=== PATIENT | female | born 1960 | race Caucasian/White ===

== ENCOUNTER 2016-03-28 06:35 | Day surgery (SDC) | payer BC, OTHER ==
[2016-03-20 13:44] VITALS: BMI 22.1
[~2016-03-28 06:35] MED LIST: DEXAMETHASONE SOD PHOSPHATE 10 MG/ML 1 ML VIAL IV ONE; HEPARIN SODIUM,PORCINE 5,000 UNIT/ML 1 ML VIAL SQ ONE; LACTATED RINGERS 1,000 ML IV SCH; MIDAZOLAM 2 MG/2 ML VIAL IV PRN; ONDANSETRON 4 MG/2 ML VIAL IVP ONE; SCOPOLAMINE 1.5MG/72HR PATCH TRANSDERM ONE; ceFAZolin 2 GM in SODIUM CHLORIDE 0.9% 100 ML IVPB ONE
[2016-03-28 06:57] VITALS: RESP 16
[2016-03-28] MEDS ORDERED: LIDOCAINE 1% 20 ML VIAL (10MG/ML) FOR IV START INTRADERMA ONE (06:58)
[2016-03-28] MEDS ORDERED: BUPIVACAIN-EPI 0.25%-1:200,000 30 ML VIAL SQ ONE ×2 (07:32→08:26)
[2016-03-28] MEDS ORDERED: GLYCOPYRROLATE 0.2 MG/ML 2 ML VIAL ONE (07:33)
[2016-03-28] MEDS ORDERED: PROPOFOL 10 MG/ML 20 ML VIAL IV ONE (07:33)
[2016-03-28] MEDS ORDERED: ceFAZolin 1,000 MG VIAL ONE (07:33)
[2016-03-28] MEDS ORDERED: SUCCINYLCHOLINE CHLORIDE VIAL 200 MG/10 ML VIAL IV ONE (07:33)
[2016-03-28] MEDS ORDERED: MIDAZOLAM 2 MG/2 ML VIAL ONE (07:33)
[2016-03-28] MEDS ORDERED: ROCURONIUM BROMIDE 10 MG/ML 10 ML VIAL IV ONE (07:33)
[2016-03-28] MEDS ORDERED: LACTATED RINGERS 1,000 ML BAG IV ONE (07:33)
[2016-03-28] MEDS ORDERED: fentaNYL (PF) 50 MCG/ML 2 ML AMP ONE (07:33)
[2016-03-28] MEDS ORDERED: PHENYLEPHRINE-0.9% NACL SYG 1 MG/10 ML SYRINGE ONE (07:33)
[2016-03-28] MEDS ORDERED: NEOSTIGMINE 1 MG/ML 10 ML VIAL ONE (07:33)
[2016-03-28] MEDS ORDERED: SODIUM CHLORIDE 0.9% 100 ML BAG ONE (07:33)
[2016-03-28] MEDS ORDERED: LACTATED RINGERS 1,000 ML IV ONE (08:25)
--- NOTE | 2016-03-28 08:30 | P.OP ---
Date of Procedure: 03/28/16 Preoperative Diagnosis: Right upper quadrant pain, gallbladder polyp Postoperative Diagnosis: Same Procedure(s) Performed: Laparoscopic cholecystectomy Implants: NA Anesthesia: MARTA, local Surgeon: Georgette Barnes Estimated Blood Loss (ml): 5 IV fluids (ml): 1,200 Pathology: other Condition: other (ASA 2) Disposition: PACU Indications for Procedure: 55 years old female presents with right upper quadrant pain. Ultrasound shows polyp in the gallbladder. Informed consent obtained and patient elected to undergo laparoscopic cholecystectomy possible open. Risks, benefits and potential complications including bleeding, infection, inadvertent bile duct injury were explained. Operative Findings: Acute on chronic cholecystitis Description of Procedure: The patient was brought to the operating room and placed in supine position with both arms out. General anesthesia with endotracheal intubation was performed as per anesthesia team. Chlorhexidine was used to prep the abdomen followed by application of sterile drapes. A timeout was performed to verify correct patient and correct procedure. Patient was confirmed to receive perioperative IV antibiotics , heparin 5000 units subcutaneous injection and bilateral SCDs were placed. A 5 mm skin incision was made below the left costal margin at the anterior axillary line. A Veress needle was inserted and pneumoperitoneum was established to a pressure of 15 mmHg. A 5 mm Optiview trocar was loaded on a 5 mm 30 laparoscope and the peritoneal cavity was entered under direct vision using the Optiview technique. Additional 5 mm trocar was placed in the supraumbilical location and two 5 mm trocars along the right subcostal margin. The left 5 mm trocar was upsized to 10mm. The patient was placed in reverse Trendelenburg with right side up. The fundus of the gallbladder was grasped with an atraumatic grasper and was retracted over the dome of the liver. There was some omental adhesions to the gallbladder which were taken down using L hook.The infundibulum was grasped with an atraumatic grasper and retracted towards the pelvis to expose the Calot' s triangle. Lateral and medial peritoneal attachment of the gallbladder bladder was dissected. Circumferential dissection was carried out around the cystic artery and the cystic duct to obtain adequate length for clip application. All the surrounding fibrofatty tissue were removed. Critical view was obtained with cystic duct and cystic artery as the only two structures entering the gallbladder. Two clips were applied on the patient's side and one on the specimen side on the cystic duct first followed by the cystic artery. Endoshears were used to divide the cystic duct and the cystic artery. The gallbladder was taken off the liver bed using a L-hook. It was placed in an endocatch specimen bag and removed through the 10mm port. The gallbladder was passed off as a specimen. The abdominal cavity was inspected. The clips on the cystic duct and cystic artery stump were intact and no bleeding noted from the liver bed. All the trocar sites were examined and no evidence of bleeding. The 10mm port site was closed with two transfascial sutures of 0 Vicryl using a Caden Lilina device. The pneumoperitoneum was evacuated and all the trocars were removed. Local anesthetic was infiltrated along the trocar sites and incisions were closed using 4-0 Monocryl followed by application of Dermabond skin glue. The sponge, instrument and needle count were correct x2. Patient was extubated and taken to post anesthesia care unit in stable condition.
[2016-03-28 08:44] VITALS: TEMP 98
[2016-03-28] MEDS ORDERED: KETOROLAC 30 MG/ML 1 ML VIAL IVP ONE (08:52)
[2016-03-28] MEDS ORDERED: ONDANSETRON 4 MG/2 ML VIAL IVP ONE (08:57)
[2016-03-28] MEDS: HYDROmorphone 1 MG/ML 1 ML SYRINGE IVP PRN ×2 (08:57→09:04)
[2016-03-28] MEDS ORDERED: HYDROcodone/APAP 5-325MG 1 EACH TAB PO ONE (09:36)
[2016-03-28 10:28] VITALS: BP 92/61; PULSE 56
== END 2016-03-28 10:46 | disposition home or self-care (01) ==
LOC: OR 06:35
PROVIDERS: ATTEND Surgery
DX: K81.1 Chronic cholecystitis (principal); L92.8 Other granulomatous disorders of the skin and subcutaneous tissue; K66.0 Peritoneal adhesions (postprocedural) (postinfection); K21.9 Gastro-esophageal reflux disease without esophagitis; Z79.899 Other long term (current) drug therapy
CPT/HCPCS: 47562; 88304; J2250; J0330; J1644; J1100; J2710; J2405; J0690; J3010; J1885; J1170; J2370; J2704

== ENCOUNTER → 2019-12-12 | Outpatient (CLI) | payer BC, OTHER | END | disposition home or self-care (01) | LOC: LABWHC1 14:26 | PROVIDERS: ATTEND Internal Medicine | DX: Z03.818 Encounter for observation for suspected exposure to other biological agents ruled out (principal) | CPT/HCPCS: U0003; C9803 ==

== ENCOUNTER 2019-12-16 15:02 | Inpatient (IN) | payer OTHER ==
[2019-12-16] MEDS ORDERED: ACETAMINOPHEN TAB 500 MG TAB PO STA (15:23)
[2019-12-16] MEDS ORDERED: SODIUM CHLORIDE 0.9% 500 ML 500 ML IV STA (15:23)
--- NOTE | 2019-12-16 15:35 | ED ---
General Adult HPI - General Chief complaint: Fever Stated complaint: Fever, Cough Time Seen by Provider: 12/16/19 15:13 Source: patient, RN notes reviewed, old records reviewed Mode of arrival: ambulatory Limitations: no limitations - History of Present Illness Initial comments: 79-year-old female presenting for evaluation of fever. She states she has had on and off fever for the past several weeks. She was tested for rotavirus on Thursday of this week. She was told these results were negative. She's had cough which is productive at times, nasal congestion, bilateral ear pain, sore throat. She's also had nausea and some abdominal pain. She dysuria or urinary frequency. She has not had vomiting. She does report dyspnea associated with her cough. - Related Data Home Medications Medication Instructions Recorded Confirmed Omeprazole 20 mg PO DAILY 03/20/16 12/16/19 Acetaminophen Tab [Tylenol Tab] 1,000 mg PO Q4-6H PRN 12/16/19 12/16/19 Fluticasone Propionate [Flonase 2 spray EA NOSTRIL BID 12/16/19 12/16/19 Allergy Relief] Loratadine [Claritin] 10 mg PO DAILY 12/16/19 12/16/19 Allergies Allergy/AdvReac Type Severity Reaction Status Date / Time No Known Allergies Allergy Verified 12/16/19 16:36 Review of Systems ROS Statement: Those systems with pertinent positive or pertinent negative responses have been documented in the HPI. ROS Other: All systems not noted in ROS Statement are negative. Past Medical History Past Medical History: GERD/Reflux Additional Past Medical History / Comment(s): OVERACTIVE BLADDER, SEASONAL ALLERGIES History of Any Multi-Drug Resistant Organisms: None Reported Additional Past Surgical History / Comment(s): COLONOSCOPY Past Anesthesia/Blood Transfusion Reactions: No Reported Reaction Past Psychological History: No Psychological Hx Reported Smoking Status: Never smoker Past Alcohol Use History: Occasional Past Drug Use History: None Reported - Past Family History Mother Family Medical History: Cancer Additional Family Medical History / Comment(s): COLON Father Family Medical History: Deep Vein Thrombosis (DVT) General Exam Limitations: no limitations General appearance: alert, in no apparent distress Head exam: Present: atraumatic, normocephalic Eye exam: Present: normal appearance, PERRL, other. Absent: scleral icterus, periorbital swelling, periorbital tenderness ENT exam: Present: other (Patient has pharyngeal erythema, white exudate). A bsent: TM's normal bilaterally (Left otitis medial with effusion, severe right otitis media with purulent effusion.) Neck exam: Present: normal inspection. Absent: tenderness, meningismus Respiratory exam: Present: respiratory distress (mild), decreased breath sounds Cardiovascular Exam: Present: normal rhythm, tachycardia GI/Abdominal exam: Present: soft. Absent: distended, tenderness, guarding Extremities exam: Present: normal inspection, normal capillary refill. Absent: pedal edema Neurological exam: Present: alert, oriented X3, CN II-XII intact. Absent: motor sensory deficit Psychiatric exam: Present: normal affect, normal mood Skin exam: Present: warm, dry, intact. Absent: cyanosis, diaphoretic Course Vital Signs 12/16/19 12/16/19 12/16/19 15:05 16:14 17:15 Temperature 105.5 F H 101.2 F H Pulse Rate 120 H 109 H 100 Respiratory 20 24 18 Rate Blood Pressure 118/70 143/77 120/70 O2 Sat by Pulse 94 L 93 L 93 L Oximetry Medical Decision Making - Medical Decision Making 59 yo female with fever, ear pain cough, congestion and sore throat. Workup was initiated coronavirus although she had a negative test on Thursday of this week. She has a exudative pharyngitis. She has a severe right otitis media. Chest x-ray shows a left lower lobe pneumonia with parapneumonic effusion. Patient has mild leukocytosis, 10.8. Otherwise laboratory testing including electrolytes. She has a heterophile positive suggestive of mononucleosis. She remains mildly hypoxic on room air with a 93%. She has high-grade fevers and tachycardia. She's given IV hydration, started on IV antibiotics. I suspect that many of her symptoms may be related to mono however given the pneumonia with effusion she will be admitted for IV antibiotics. Pulmonology will be placed on consult. Case is discussed with Nina baez for [facility] hospitalists. - Lab Data Result diagrams: 12/16/19 15:50 12/16/19 15:50 Lab Results 12/16/19 12/16/19 12/16/19 Range/Units 15:50 15:50 15:50 WBC 10.8 H (3.8-10.6) k/uL RBC 4.05 (3.80-5.40) m/uL Hgb 12.0 (11.4-16.0) gm/dL Hct 37.0 (34.0-46.0) % MCV 91.2 (80.0-100.0) fL MCH 29.5 (25.0-35.0) pg MCHC 32.4 (31.0-37.0) g/dL RDW 11.8 (11.5-15.5) % Plt Count 404 (150-450) k/uL Neutrophils % 87 % Lymphocytes % 6 % Monocytes % 5 % Eosinophils % 1 % Basophils % 1 % Neutrophils # 9.4 H (1.3-7.7) k/uL Lymphocytes # 0.6 L (1.0-4.8) k/uL Monocytes # 0.5 (0-1.0) k/uL Eosinophils # 0.1 (0-0.7) k/uL Basophils # 0.1 (0-0.2) k/uL Sodium 135 L (137-145) mmol/L Potassium 4.5 (3.5-5.1) mmol/L Chloride 98 (98-107) mmol/L Carbon Dioxide 26 (22-30) mmol/L Anion Gap 11 mmol/L BUN 13 (7-17) mg/dL Creatinine 0.70 (0.52-1.04) mg/dL Est GFR (CKD-EPI)AfAm >90 (>60 ml/min/1.73 sqM) Est GFR (CKD-EPI)NonAf >90 (>60 ml/min/1.73 sqM) Glucose 121 H (74-99) mg/dL Plasma Lactic Acid Deondre (0.7-2.0) mmol/L Calcium 9.1 (8.4-10.2) mg/dL Total Bilirubin 0.5 (0.2-1.3) mg/dL AST 25 (14-36) U/L ALT 14 (4-34) U/L Alkaline Phosphatase 87 (38-126) U/L Total Protein 7.1 (6.3-8.2) g/dL Albumin 4.0 (3.5-5.0) g/dL Heterophile Antibody Positive (Negative) Influenza Type A RNA (Not Detectd) Influenza Type B (PCR) (Not Detectd) Group A Strep Rapid (Negative) 12/16/19 12/16/19 12/16/19 Range/Units 15:50 16:12 16:12 WBC (3.8-10.6) k/uL RBC (3.80-5.40) m/uL Hgb (11.4-16.0) gm/dL Hct (34.0-46.0) % MCV (80.0-100.0) fL MCH (25.0-35.0) pg MCHC (31.0-37.0) g/dL RDW (11.5-15.5) % Plt Count (150-450) k/uL Neutrophils % % Lymphocytes % % Monocytes % % Eosinophils % % Basophils % % Neutrophils # (1.3-7.7) k/uL Lymphocytes # (1.0-4.8) k/uL Monocytes # (0-1.0) k/uL Eosinophils # (0-0.7) k/uL Basophils # (0-0.2) k/uL Sodium (137-145) mmol/L Potassium (3.5-5.1) mmol/L Chloride (98-107) mmol/L Carbon Dioxide (22-30) mmol/L Anion Gap mmol/L BUN (7-17) mg/dL Creatinine (0.52-1.04) mg/dL Est GFR (CKD-EPI)AfAm (>60 ml/min/1.73 sqM) Est GFR (CKD-EPI)NonAf (>60 ml/min/1.73 sqM) Glucose (74-99) mg/dL Plasma Lactic Acid Deondre 1.6 (0.7-2.0) mmol/L Calcium (8.4-10.2) mg/dL Total Bilirubin (0.2-1.3) mg/dL AST (14-36) U/L ALT (4-34) U/L Alkaline Phosphatase (38-126) U/L Total Protein (6.3-8.2) g/dL Albumin (3.5-5.0) g/dL Heterophile Antibody (Negative) Influenza Type A RNA Not Detected (Not Detectd) Influenza Type B (PCR) Not Detected (Not Detectd) Group A Strep Rapid Negative (Negative) Disposition Clinical Impression: Community acquired pneumonia, Mononucleosis, Otitis media Disposition: ADMITTED IP TO THIS HOSP Condition: Stable Is patient prescribed a controlled substance at d/c from ED?: No Referrals: Chacha Singleton MD [Primary Care Provider] - 1-2 days Decision to Admit Reason: Admit from EC Decision Date: 12/16/19 Decision Time: 17:19
[2019-12-16 15:59] LABS: Basophils # (A) 0.1 k/uL (0-0.2); Basophils % (A) 1 %; Eosinophils # (A) 0.1 k/uL (0-0.7); Eosinophils % (A) 1 %; Lymphocytes # (A) 0.6 k/uL (1.0-4.8); Lymphocytes % (A) 6 %; MCH 29.5 pg (25.0-35.0); MCHC 32.4 g/dL (31.0-37.0); MCV 91.2 fL (80.0-100.0); Mean Platelet Volume 6.6; Monocytes # (A) 0.5 k/uL (0-1.0); Monocytes % (A) 5 %; Neutrophils # (A) 9.4 k/uL (1.3-7.7); Neutrophils % (A) 87 %; Platelet Count 404 k/uL (150-450); RBC 4.05 m/uL (3.80-5.40); RDW 11.8 % (11.5-15.5); WBC 10.8 k/uL (3.8-10.6)
[2019-12-16 16:11] LABS: ALT 14 U/L (4-34); AST 25 U/L (14-36); African American GFR (CKD) >90 (>60 ml/min/1.73 sqM); Alkaline Phosphatase 87 U/L (38-126); Anion Gap 11 mmol/L; Blood Urea Nitrogen 13 mg/dL (7-17); Calcium 9.1 mg/dL (8.4-10.2); Carbon Dioxide 26 mmol/L (22-30); Chloride 98 mmol/L (98-107); Glucose 121 mg/dL (74-99); Non-African American GFR(CKD) >90 (>60 ml/min/1.73 sqM); Potassium 4.5 mmol/L (3.5-5.1); Sodium 135 mmol/L (137-145); Total Bilirubin 0.5 mg/dL (0.2-1.3); Total Protein 7.1 g/dL (6.3-8.2)
[2019-12-16] MEDS ORDERED: AMOXIC-POT CLAV 875MG STARTER PACK 2 TAB BTL PO STA (16:39)
--- NOTE | 2019-12-16 16:40 | XR ---
EXAMINATION TYPE: XR chest 1V portable DATE OF EXAM: 12/16/2019 CLINICAL HISTORY: Fever, cough TECHNIQUE: Frontal portable view of the chest obtained COMPARISON: None FINDINGS: The cardiomediastinal silhouette is within normal limits for size. Pulmonary vasculature i s normal. There is small left pleural effusion and left basilar airspace opacity. No pneumothorax. Th e osseous structures are intact. IMPRESSION: Small left pleural effusion and left basilar airspace opacity.
[2019-12-16] MEDS ORDERED: AZITHROMYCIN 500 MG in SODIUM CHLORIDE 0.9% 250 ML IVPB STA (17:08)
[2019-12-16] MEDS ORDERED: cefTRIAXone IN SWFI 1,000 MG/10 ML SYRINGE IVP STA (17:08)
[2019-12-16] MEDS ORDERED: NALOXONE 0.4 MG/ML 1 ML VIAL IV PRN (17:15)
[2019-12-16] MEDS ORDERED: ACETAMINOPHEN TAB 325 MG TAB PO PRN (17:15)
[2019-12-16] MEDS ORDERED: SODIUM CHLORIDE 0.9% 500 ML 500 ML IV ONE (17:18)
[2019-12-16] MEDS: IBUPROFEN 400 MG TAB PO PRN (17:44)
[2019-12-16] MEDS: SODIUM CHLORIDE 0.9% 1,000 ML IV SCH (17:45)
[2019-12-16 22:13] LABS: Appearance,Urine Clear (Clear); Bilirubin,Urine Negative (Negative); Blood,Urine Negative (Negative); Color,Urine Light Yellow; Glucose,Urine (UA) Negative (Negative); Ketones,Urine Trace (Negative); Leukocyte Esterase,Urine Negative (Negative); Nitrite,Urine Negative (Negative); PH, Urine 5.5 (5.0-8.0); Protein,Urine Negative (Negative); Specific Gravity,Urine 1.008 (1.001-1.035); Urobilinogen,Urine <2.0 mg/dL (<2.0)
[2019-12-17] MEDS: BENZOCAINE/MENTHOL LOZENG 1 EACH LOZENGE MUCOUS MEM PRN ×5 (01:21→21:36)
[2019-12-17] MEDS: guaiFENesin-DM 100-10MG/5ML 10 ML CUP PO PRN ×2 (01:23→23:54)
[2019-12-17] MEDS: SODIUM CHLORIDE 0.9% 1,000 ML IV SCH ×3 (05:42→12:50)
[2019-12-17] MEDS: LORATADINE 10 MG TAB PO SCH (08:11)
[2019-12-17] MEDS: PANTOPRAZOLE 40 MG TABLET PO SCH (08:11)
[2019-12-17] MEDS: FLUTICASONE 50MCG/SPRAY NASAL 16GM EA NOSTRIL SCH ×2 (08:21→21:38)
--- NOTE | 2019-12-17 11:49 | P.CNPUL ---
History of Present Illness Consult date: 12/17/19 Requesting physician: Maico Vargas Reason for consult: dyspnea, abnormal CXR/CT (Left lower lobe infiltrate) Chief complaint: Shortness of breath, cough, sore throat History of present illness: This is a 59-year-old female patient who follows with Dr. Singleton as her primary care provider. She has a history of alcohol use, gastroesophageal reflux disease, seasonal ALLERGIES. She's been having a 2 week history of sore throat and right ear pain cough with yellow productive sputum and fever. She had CoVID 19 test earlier this week that was reported as negative. She presented here yesterday to the emergency room with ongoing fever. She presented with a T-max of 105.5. Chest x-ray revealed a limited left lower lobe infiltrate/effusion. She is seen today in consultation on the regular medical floor. She is awake and alert in no acute distress. She is maintaining O2 saturations in the mid 90s on 2 L/m per nasal cannula. Currently afebrile. Hemodynamically stable. Throat culture pending. Heterophile antibody positive. White count 10.8. Hemoglobin 12.0. Sodium 135. Potassium 4.5. Creatinine 0.70. Influenza screen negative. Rapid strep negative. She's been initiated on ceftriaxone and azithromycin. 0.9 normal saline at 130 ML's per hour. Review of Systems REVIEW OF SYSTEMS: CONSTITUTIONAL: Denies any recent significant weight loss or weight gain. EYES: Denies change in vision. EARS, NOSE, MOUTH, THROAT: Positive for sore throat, right ear pain. CARDIOVASCULAR: Denies chest pain, palpitations or syncopal episodes. RESPIRATORY: Positive for shortness of breath, cough, congestion no hemoptysis. GASTROINTESTINAL: Denies change in appetite, denies abdominal pain GENITOURINARY: Denies hematuria, denies infections. MUSKULOSKELETAL: Denies pain, denies swelling. INTEGUMENTARY: Denies rash, denies eczema. NEUROLOGICAL: Denies recent memory loss, no recent seizure activity. PSYCHIATRIC: Denies anxiety, denies depression. HEMATOLOGIC/LYMPHATIC: Denies anemia, denies enlarged lymph nodes. Past Medical History Past Medical History: GERD/Reflux Additional Past Medical History / Comment(s): OVERACTIVE BLADDER, SEASONAL ALLERGIES History of Any Multi-Drug Resistant Organisms: None Reported Past Surgical History: Cholecystectomy Additional Past Surgical History / Comment(s): COLONOSCOPY Past Anesthesia/Blood Transfusion Reactions: No Reported Reaction Past Psychological History: No Psychological Hx Reported Smoking Status: Never smoker Past Alcohol Use History: Occasional Past Drug Use History: None Reported - Past Family History Mother Family Medical History: Cancer Additional Family Medical History / Comment(s): COLON Father Family Medical History: Deep Vein Thrombosis (DVT) Medications and Allergies Home Medications Medication Instructions Recorded Confirmed Type Omeprazole 20 mg PO DAILY 03/20/16 12/16/19 History Acetaminophen Tab [Tylenol Tab] 1,000 mg PO Q4-6H PRN 12/16/19 12/16/19 History Fluticasone Propionate [Flonase 2 spray EA NOSTRIL BID 12/16/19 12/16/19 History Allergy Relief] Loratadine [Claritin] 10 mg PO DAILY 12/16/19 12/16/19 History Allergies Allergy/AdvReac Type Severity Reaction Status Date / Time No Known Allergies Allergy Verified 12/16/19 16:36 Physical Exam Vitals: Vital Signs Temp Pulse Pulse Resp BP BP Pulse Ox 12/17/19 07:00 98.2 F 91 16 136/81 95 12/16/19 19:29 99.7 F H 82 103/56 95 12/16/19 18:49 87 16 101/79 93 L 12/16/19 17:15 101.2 F H 100 18 120/70 93 L 12/16/19 16:14 109 H 24 143/77 93 L 12/16/19 15:05 105.5 F H 120 H 20 118/70 94 L Intake and Output 12/16/19 12/17/19 12/17/19 22:59 06:59 14:59 Intake Total 200 Balance 200 Intake: Oral 200 Other: Voiding Method Toilet Toilet # Voids 1 Weight 49.895 kg GENERAL EXAM: Alert, active, 59-year-old female patient, on 2 L/m per nasal cannula, comfortable in no apparent distress. HEAD: Normocephalic. EYES: Normal reaction of pupils, equal size. NOSE: Clear with pink turbinates. THROAT: Erythema no exudates. NECK: No masses, no JVD. CHEST: No chest wall deformity. LUNGS: Equal air entry with crackles in the left base. CVS: S1 and S2 normal with no audible murmur, regular rhythm. ABDOMEN: No hepatosplenomegaly, normal bowel sounds, no guarding or rigidity. SPINE: No scoliosis or deformity SKIN: No rashes CENTRAL NERVOUS SYSTEM: No focal deficits, tone is normal in all 4 extremities. EXTREMITIES: There is no peripheral edema. No clubbing, no cyanosis. Per ipheral pulses are intact. Results - Laboratory Findings CBC and BMP: 12/16/19 15:50 12/16/19 15:50 Abnormal lab findings: Abnormal Labs 12/16/19 12/16/19 12/16/19 15:50 15:50 22:00 WBC 10.8 H Neutrophils # 9.4 H Lymphocytes # 0.6 L Sodium 135 L Glucose 121 H Urine Ketones Trace H - Diagnostic Findings Chest x-ray: image reviewed Assessment and Plan Assessment: 1 Febrile illness secondary to left lower lobe pneumonia, community-acquired. Influenza screen negative. CoVID screen negative reported as negative by outside source 2 Dyspnea secondary to acute left lower lobe pneumonia 3 History of seasonal ALLERGIES. 4 History of gastroesophageal reflux disease 5 History of alcohol use Plan: The patient was seen and evaluated by Dr. Gabriel Chest x-ray and labs reviewed Continue ceftriaxone and azithromycin Cepacol for sore throat Repeat chest x-ray on Thursday Probable discharge in the next 48 hours We'll continue to follow I, the cosigning physician, performed a history & physical examination of the patient. Lungs sounds crackles in the left posterior. Maintaining good O2 saturations in the 90s on 2 L/m per nasal cannula. I discussed the assessment and plan of care with my nurse practitioner, Ayanna Barrera. I attest to the above note as dictated by her. Time with Patient: Greater than 30
[2019-12-17] MEDS: IBUPROFEN 400 MG TAB PO PRN (14:05)
[2019-12-17] MEDS: AZITHROMYCIN 500 MG in SODIUM CHLORIDE 0.9% 250 ML IVPB SCH (14:05)
[2019-12-17] MEDS ORDERED: ALPRAZolam 0.25 MG TAB PO PRN (14:37)
[2019-12-17] MEDS ORDERED: HYDROcodone/APAP 5-325MG 1 EACH TAB PO PRN (14:37)
[2019-12-17 14:44] VITALS: BMI 19.5
--- NOTE | 2019-12-17 16:27 | HP ---
HISTORY AND PHYSICAL DATE OF SERVICE: 12/17/2019 CHIEF COMPLAINT: Shortness of breath, cough and sore throat. HISTORY OF PRESENT ILLNESS: This 59-year-old woman with a past medical history of GERD, history of overactive bladder, history of colonoscopy, being followed by Dr. Singleton in the outpatient setting, not feeling well over the past several weeks. The patient initially had a sore throat. Subsequently, patient had a cough and weakness and sputum. The patient came to [facility] and was admitted for further evaluation and treatment. The patient was tested for coronavirus outside which was negative. In the ER, the patient had possibly left lower lobe pneumonia with some minimal effusion indicating community- acquired pneumonia. The patient admitted for further evaluation and treatment. There is no history of any headache, loss of consciousness or seizures. No hematochezia, melena at this time. PAST MEDICAL HISTORY: GERD, overactive bladder. History of cholecystectomy, colonoscopy. MEDICATIONS: At home prior to admission include: omeprazole, Claritin. Flonase. Tylenol. Doses reviewed. ALLERGIES: None. FAMILY HISTORY: Family history of colon cancer in the family. SOCIAL HISTORY: No history of smoking. Occasional alcohol intake. REVIEW OF SYSTEMS: ENT as mentioned earlier. CARDIOVASCULAR: No angina or palpitations. RESPIRATORY: As mentioned earlier. GI: No nausea or vomiting. no dysuria. NERVOUS SYSTEM: No numbness or weakness. ALLERGY/IMMUNOLOGY: No asthma or hayfever. MUSCULOSKELETAL as mentioned earlier. HEMATOLOGY/ONCOLOGY: No history of anemia. ENDOCRINE: No history of diabetes or hypothyroidism. CONSTITUTIONAL: As mentioned earlier. DERMATOLOGY: Negative. RHEUMATOLOGY negative. PSYCHIATRY as mentioned earlier. PHYSICAL EXAMINATION: The patient is alert and oriented times three. Pulse 91, blood pressure 136/81, respirations 16, temp 98.2, pulse ox 94% on 2 L nasal cannula. HEENT: Conjunctivae normal. NECK: No JVD. CARDIOVASCULAR: S1, S2 muffled. RESPIRATORY: Breath sounds diminished in the bases. A few scattered rhonchi and crackles. ABDOMEN: Soft, nontender. No mass palpable. LEGS no edema. No swelling. NERVOUS SYSTEM: Higher functions as mentioned earlier. Moves all 4 limbs. No focal motor or sensory deficits. LYMPHATICS: No lymph nodes palpable in the neck, axillae or groin. SKIN: No ulcers. No rashes or bleeding. JOINTS: No active deforming arthropathy. LABS: At this time shows: WBC 10.8, hemoglobin is 12, sodium 135. ASSESSMENT: 1. Acute left lower pneumonia with community-acquired pneumonia with possible left pleural effusion. 2. Infectious mononucleosis with sore throat. 3. Shortness of breath, possibly reactive bronchospasm. 4. Increased WBC. 5. Hyponatremia. 6. Increased random blood sugar. 7. History of gastroesophageal reflux disease. 8. History of overactive bladder. 9. History of seasonal allergies. 10.History of cholecystectomy. 11.Mild protein calorie malnutrition with body mass index of 19.5. 12.FULL CODE. RECOMMENDATIONS AND DISCUSSION: This 59-year-old woman who presented with multiple complex medical issues, we will monitor the patient closely. Continue the current medications, management and symptomatic treatment. We will initiate bronchodilators and as well as antibiotics. I would also add a small dose of steroids because history of seasonal allergies as well. Otherwise continue to monitor. Symptomatic treatment also will be provided. Overall prognosis guarded because of multiple complex medical issues. We will continue to monitor. Home medication will be reconciled. A copy of this dictation being forwarded to Dr. Singleton who is the primary physician. MMODL / IJN: [id number] / PREETI
[2019-12-17] MEDS: methylPREDNISolone SOD SUCCI 125 MG/2 ML VIAL IV SCH ×3 (16:30→23:54)
[2019-12-17] MEDS: INSULIN ASPART (NovoLOG) 100 UNIT/ML VIAL SQ SCH ×2 (16:53→21:37)
[2019-12-17 17:10] LABS: Glucose,Whole Blood 98 mg/dL (75-99)
[2019-12-17 20:32] LABS: Glucose,Whole Blood 168 mg/dL (75-99)
[2019-12-17] MEDS: HEPARIN SODIUM,PORCINE 5,000 UNIT/ML 1 ML VIAL SQ SCH (21:37)
[2019-12-18] MEDS: BENZOCAINE/MENTHOL LOZENG 1 EACH LOZENGE MUCOUS MEM PRN ×2 (01:43→12:22)
[2019-12-18] MEDS: methylPREDNISolone SOD SUCCI 125 MG/2 ML VIAL IV SCH ×4 (05:25→23:08)
[2019-12-18 06:52] LABS: Glucose,Whole Blood 165 mg/dL (75-99)
[2019-12-18] MEDS: LORATADINE 10 MG TAB PO SCH (07:43)
[2019-12-18] MEDS: INSULIN ASPART (NovoLOG) 100 UNIT/ML VIAL SQ SCH ×4 (07:43→21:06)
[2019-12-18] MEDS: FLUTICASONE 50MCG/SPRAY NASAL 16GM EA NOSTRIL SCH ×2 (07:43→21:06)
[2019-12-18] MEDS: PANTOPRAZOLE 40 MG TABLET PO SCH (07:43)
[2019-12-18 07:44] LABS: Basophils % (A) 0 %; Eosinophils % (A) 0 %; HCT 35.8 % (34.0-46.0); HGB 11.5 gm/dL (11.4-16.0); Lymphocytes # (A) 0.6 k/uL (1.0-4.8); Lymphocytes % (A) 5 %; MCH 29.9 pg (25.0-35.0); MCV 93.3 fL (80.0-100.0); Mean Platelet Volume 6.7; Monocytes # (A) 0.2 k/uL (0-1.0); Monocytes % (A) 2 %; Neutrophils % (A) 93 %; Platelet Count 488 k/uL (150-450); RBC 3.84 m/uL (3.80-5.40); RDW 12.4 % (11.5-15.5); WBC 10.8 k/uL (3.8-10.6)
[2019-12-18] MEDS: HEPARIN SODIUM,PORCINE 5,000 UNIT/ML 1 ML VIAL SQ SCH ×2 (07:44→21:05)
[2019-12-18 08:06] LABS: African American GFR (CKD) >90 (>60 ml/min/1.73 sqM); Anion Gap 10 mmol/L; Blood Urea Nitrogen 7 mg/dL (7-17); Calcium 8.7 mg/dL (8.4-10.2); Carbon Dioxide 26 mmol/L (22-30); Chloride 103 mmol/L (98-107); Glucose 201 mg/dL (74-99); Non-African American GFR(CKD) >90 (>60 ml/min/1.73 sqM); Potassium 3.5 mmol/L (3.5-5.1); Sodium 139 mmol/L (137-145)
[2019-12-18 11:44] LABS: Glucose,Whole Blood 173 mg/dL (75-99)
--- NOTE | 2019-12-18 11:55 | XR ---
EXAMINATION TYPE: XR chest 1V portable DATE OF EXAM: 12/18/2019 COMPARISON: 12/16/2019 INDICATION: Left-sided pneumonia TECHNIQUE: Single frontal view of the chest is obtained. FINDINGS: The heart size is normal. The pulmonary vasculature is normal. Left lower lobe infiltrate is present. Calcification is present could be a granuloma. Remaining porti ons of the lungs are clear. IMPRESSION: 1. Findings suggestive for improving left lower lobe pneumonia. Follow-up to clearing is recommended.
--- NOTE | 2019-12-18 13:10 | P.PN ---
Subjective Progress Note Date: 12/18/19 Principal diagnosis: Community-acquired left lower lobe pneumonia This is a 59-year-old female patient who follows with Dr. Singleton as her primary care provider. She has a history of alcohol use, gastroesophageal reflux disease, seasonal ALLERGIES. She's been having a 2 week history of sore throat and right ear pain cough with yellow productive sputum and fever. She had CoVID 19 test earlier this week that was reported as negative. She presented here yesterday to the emergency room with ongoing fever. She presented with a T-max of 105.5. Chest x-ray revealed a limited left lower lobe infiltrate/effusion. She is seen today in consultation on the regular medical floor. She is awake and alert in no acute distress. She is maintaining O2 saturations in the mid 90s on 2 L/m per nasal cannula. Currently afebrile. Hemodynamically stable. Throat culture pending. Heterophile antibody positive. White count 10.8. Hemoglobin 12.0. Sodium 135. Potassium 4.5. Creatinine 0.70. Influenza screen negative. Rapid strep negative. She's been initiated on ceftriaxone and azithromycin. 0.9 normal saline at 130 ML's per hour. Patient is seen today 12/18/2019 in follow-up on the regular medical floor. She is awake and alert in no acute distress. She's been up ambulating in her room. She is breathing quite a bit easier today as compared to yesterday. Less cough and congestion. Maintaining O2 saturations in the mid 90s on room air. She's afebrile. Blood culture reveals no growth to date. She is maintained on ceftriaxone and azithromycin. Chest x-ray showed improvement of the left lower lobe. White count 10.8. Hemoglobin 11.5. Creatinine 0.57 Objective - Vital Signs Vital signs: Vital Signs Temp 98.2 F 12/18/19 07:52 Pulse 96 12/18/19 07:52 Resp 16 12/18/19 07:52 BP 165/84 12/18/19 07:52 Pulse Ox 95 12/18/19 07:52 Intake & Output 12/17/19 12/18/19 12/18/19 18:59 06:59 18:59 Intake Total 400 Balance 400 Weight 49.895 kg Intake: Oral 400 Other: Voiding Method Toilet # Voids 2 1 - Exam GENERAL EXAM: Alert, active, 59-year-old female patient, on room air, comfortable in no apparent distress. HEAD: Normocephalic. EYES: Normal reaction of pupils, equal size. NOSE: Clear with pink turbinates. THROAT: Erythema no exudates. NECK: No masses, no JVD. CHEST: No chest wall deformity. LUNGS: Equal air entry with crackles in the left base. CVS: S1 and S2 normal with no audible murmur, regular rhythm. ABDOMEN: No hepatosplenomegaly, normal bowel sounds, no guarding or rigidity. SPINE: No scoliosis or deformity SKIN: No rashes CENTRAL NERVOUS SYSTEM: No focal deficits, tone is normal in all 4 extremities. EXTREMITIES: There is no peripheral edema. No clubbing, no cyanosis. Peripheral pulses are intact. - Labs CBC & Chem 7: 12/18/19 07:19 12/18/19 07:19 Labs: Abnormal Lab Results - Last 24 Hours (Table) 12/17/19 12/18/19 12/18/19 Range/Units 20:31 06:51 07:19 WBC 10.8 H (3.8-10.6) k/uL Plt Count 488 H (150-450) k/uL Neutrophils # 10.0 H (1.3-7.7) k/uL Lymphocytes # 0.6 L (1.0-4.8) k/uL D-Dimer (<0.60) mg/L FEU Glucose (74-99) mg/dL POC Glucose (mg/dL) 168 H 165 H (75-99) mg/dL 12/18/19 12/18/19 12/18/19 Range/Units 07:19 11:43 12:06 WBC (3.8-10.6) k/uL Plt Count (150-450) k/uL Neutrophils # (1.3-7.7) k/uL Lymphocytes # (1.0-4.8) k/uL D-Dimer 1.10 H (<0.60) mg/L FEU Glucose 201 H (74-99) mg/dL POC Glucose (mg/dL) 173 H (75-99) mg/dL Microbiology - Last 24 Hours (Table) 12/16/19 15:50 Blood Culture - Preliminary Blood No Growth after 24 hours Assessment and Plan Assessment: 1 Febrile illness secondary to left lower lobe pneumonia, community-acquired. Influenza screen negative. CoVID screen negative reported as negative by outside source 2 Dyspnea secondary to acute left lower lobe pneumonia 3 History of seasonal ALLERGIES. 4 History of gastroesophageal reflux disease 5 History of alcohol use Plan: The patient was seen and evaluated by Dr. Gabriel Chest x-ray and labs reviewed Continue ceftriaxone and azithromycin Chest x-ray in a.m. Probable discharge in the next 24 hours We'll continue to follow I, the cosigning physician, performed a history & physical examination of the patient. Lungs sounds crackles in the left posterior. Maintaining good O2 s aturations in the 90s on room air. I discussed the assessment and plan of care with my nurse practitioner, Ayanna Barrera. I attest to the above note as dictated by her.
[2019-12-18 13:26] LABS: C Reactive Protein 397.8 mg/L (<10.0)
[2019-12-18] MEDS: AZITHROMYCIN 500 MG in SODIUM CHLORIDE 0.9% 250 ML IVPB SCH (15:56)
[2019-12-18 16:42] LABS: Glucose,Whole Blood 138 mg/dL (75-99)
[2019-12-18 20:29] LABS: Glucose,Whole Blood 142 mg/dL (75-99)
[2019-12-19] MEDS: guaiFENesin-DM 100-10MG/5ML 10 ML CUP PO PRN (00:16)
--- NOTE | 2019-12-19 04:52 | PN ---
PROGRESS NOTE DATE OF SERVICE: 12/18/2019 This 59-year-old woman followed by Dr. Singleton in the outpatient setting admitted with significant sore throat followed by cough and sputum and left lower pneumonia. The patient's infectious mononucleosis also positive at this time with the most recent chest x-ray which was done today and personally reviewed by me showed significant pneumonic process in the left chest. The patient also had significant ear problems, indicating possibly otitis . ESR is 94, D-dimer is 1.10 and C-reactive protein is 397. Dr. Gabriel is following the patient from pulmonary standpoint. PAST MEDICAL HISTORY: Reviewed. REVIEW OF SYSTEMS: CARDIOVASCULAR SYSTEM: No angina. RESPIRATORY SYSTEM: As mentioned earlier. GI: As mentioned earlier. : No dysuria. NERVOUS SYSTEM: No numbness or weakness. CURRENT MEDICATIONS: Current medications are Tylenol p.r.n., Neligh 5 mg, Xanax, Zithromax, Rocephin, fluticasone, Robitussin, Motrin, Claritin, Solu-Medrol, Narcan, Protonix. PHYSICAL EXAMINATION: The patient is alert and oriented x3. Pulse 96, blood pressure 165/84, respirations 16, temperature 98.2, pulse ox 95% on room air. HEENT: Conjunctivae normal. NECK: No jugular venous distention. CARDIOVASCULAR: S1, S2 muffled. RESPIRATORY: Breath sounds diminished at the bases. A few scattered rhonchi and crackles. ABDOMEN: Soft, nontender. LEGS: No edema, no swelling. NERVOUS SYSTEM: No focal deficits. LABS: WBC 10.8, hemoglobin 11.5. Other labs are noted. ASSESSMENT: 1. Acute left lower pneumonia with possibly community-acquired as well as left pleural effusion. 2. Infectious mononucleosis with sore throat. 3. Shortness of breath, possibly reactive bronchospasm. 4. Increased WBC. 5. Elevated inflammatory markers including CRP and D-dimer. 6. Hyponatremia. 7. Increased random blood sugar. 8. Gastroesophageal reflux disease. 9. History of overactive bladder. 10.History of seasonal allergies. 11.History of cholecystectomy. 12.Mild protein-calorie malnutrition with body mass index of 19.5. 13.FULL CODE. RECOMMENDATIONS AND DISCUSSION: This 59-year-old woman who presented with multiple complex medical issues, we will monitor the patient closely. Continue the current medications, continue symptomatic treatment. Otherwise at this time I recommend CT angio to rule out the possibility of pulmonary embolism. Otherwise, the patient is recommended to avoid air travel, which the patient was planning a trip to [place] for at least next few weeks and to be followed up in the outpatient setting. I will repeat the chest x-ray. The patient also requested an ENT consultation which could be performed in the outpatient with Dr. Bowen. A copy of dictation forwarded to Dr. Singleton, who is the primary physician for continued followup. MMODL / IJN: [id number] / MTDD
[2019-12-19] MEDS: methylPREDNISolone SOD SUCCI 125 MG/2 ML VIAL IV SCH ×2 (05:45→11:50)
[2019-12-19 07:16] LABS: Basophils # (A) 0.1 k/uL (0-0.2); Basophils % (A) 0 %; Eosinophils # (A) 0.1 k/uL (0-0.7); Eosinophils % (A) 1 %; HCT 33.2 % (34.0-46.0); HGB 10.4 gm/dL (11.4-16.0); Lymphocytes % (A) 4 %; MCH 28.9 pg (25.0-35.0); MCHC 31.3 g/dL (31.0-37.0); MCV 92.5 fL (80.0-100.0); Mean Platelet Volume 6.7; Monocytes # (A) 0.5 k/uL (0-1.0); Monocytes % (A) 2 %; Neutrophils # (A) 20.9 k/uL (1.3-7.7); Neutrophils % (A) 93 %; Platelet Count 532 k/uL (150-450); RBC 3.59 m/uL (3.80-5.40); RDW 12.1 % (11.5-15.5); WBC 22.6 k/uL (3.8-10.6)
[2019-12-19 07:26] LABS: Glucose,Whole Blood 138 mg/dL (75-99)
[2019-12-19] MEDS: INSULIN ASPART (NovoLOG) 100 UNIT/ML VIAL SQ SCH ×3 (07:28→19:04)
--- NOTE | 2019-12-19 07:56 | XR ---
EXAMINATION TYPE: XR chest 2V DATE OF EXAM: 12/19/2019 COMPARISON: 12/18/2019 INDICATION: Short of breath TECHNIQUE: Frontal and lateral views of the chest are obtained. FINDINGS: The heart size is normal. The pulmonary vasculature is normal. There is an infiltrate at the left base. This is improving from comparison. A small nodularity measur ing 0.8 cm remains present at the left base.. IMPRESSION: 1. Improving left lower lobe infiltrate. 2. Stable nodule left lung base
[2019-12-19] MEDS: PANTOPRAZOLE 40 MG TABLET PO SCH (09:13)
[2019-12-19] MEDS: LORATADINE 10 MG TAB PO SCH (09:14)
[2019-12-19] MEDS: FLUTICASONE 50MCG/SPRAY NASAL 16GM EA NOSTRIL SCH ×2 (09:14→19:21)
[2019-12-19] MEDS: HEPARIN SODIUM,PORCINE 5,000 UNIT/ML 1 ML VIAL SQ SCH ×2 (09:16→19:23)
[2019-12-19 11:05] LABS: Anion Gap 12.3 mmol/L (4.00-12.00); BUN/Creat Ratio 21.67 Ratio (12.00-20.00); Calcium 8.8 mg/dL (8.7-10.3); Carbon Dioxide 22.7 mmol/L (21.6-31.8); Non-African American GFR(CKD) 98.4 (60.0-200.0); Potassium 4.4 mmol/L (3.5-5.5)
[2019-12-19 11:51] LABS: Glucose,Whole Blood 121 mg/dL (75-99)
[2019-12-19 14:38] LABS: EBV-EA (IgG) 0.2 AI; EBV-EBNA(IgG) >8.0 AI; EBV-VCA (IgG) 7.5 AI; EBV-VCA (IgM) 0.2 AI
--- NOTE | 2019-12-19 16:08 | CT ---
EXAMINATION TYPE: CT angio chest DATE OF EXAM: 12/19/2019 COMPARISON: Same day chest x-ray HISTORY: Elevated d-dimer and cough. CT DLP: 138 mGycm. Automated Exposure Control for Dose Reduction was Utilized. CONTRAST: CTA scan of the thorax is performed with IV Contrast, patient injected with 60ml mL of Isovue 370, pu lmonary embolism protocol. MIP Images are created on CT scanner and reviewed. FINDINGS: LUNGS: Persistent focal left basilar consolidation with air bronchograms and adjacent mild to moderat e linear scarring and/or atelectasis small focal areas of groundglass opacity superior to mid aspect left lower lobe are present. Lingula and left upper lobe are clear. Right lung is clear. No pleural e ffusion or pneumothorax seen bilaterally. There is 1.2 x 0.8 cm calcified left lower lobe nodule or g ranuloma in segment 117. MEDIASTINUM: There is satisfactory enhancement of the pulmonary artery and its branches, there is no CT evidence for pulmonary embolism. There are no greater than 1 cm noncalcified hilar or mediastinal lymph nodes. Prominent but calcified left hilar lymph nodes are seen. Tiny pericardial effusion is s een. No cardiomegaly. Satisfactory enhancement of the thoracic aorta without aneurysm or dissection. OTHER: Cholecystectomy clips. IMPRESSION: No CT evidence for acute pulmonary embolism. Evidence of old granulomatous disease. Left lower lobe acute pneumonic consolidation redemonstrated.
--- NOTE | 2019-12-19 17:11 | P.PN ---
Subjective Progress Note Date: 12/19/19 Principal diagnosis: Community-acquired left lower lobe pneumonia This is a 59-year-old female patient who follows with Dr. Singleton as her primary care provider. She has a history of alcohol use, gastroesophageal reflux disease, seasonal ALLERGIES. She's been having a 2 week history of sore throat and right ear pain cough with yellow productive sputum and fever. She had CoVID 19 test earlier this week that was reported as negative. She presented here yesterday to the emergency room with ongoing fever. She presented with a T-max of 105.5. Chest x-ray revealed a limited left lower lobe infiltrate/effusion. She is seen today in consultation on the regular medical floor. She is awake and alert in no acute distress. She is maintaining O2 saturations in the mid 90s on 2 L/m per nasal cannula. Currently afebrile. Hemodynamically stable. Throat culture pending. Heterophile antibody positive. White count 10.8. Hemoglobin 12.0. Sodium 135. Potassium 4.5. Creatinine 0.70. Influenza screen negative. Rapid strep negative. She's been initiated on ceftriaxone and azithromycin. 0.9 normal saline at 130 ML's per hour. Patient is seen today 12/18/2019 in follow-up on the regular medical floor. She is awake and alert in no acute distress. She's been up ambulating in her room. She is breathing quite a bit easier today as compared to yesterday. Less cough and congestion. Maintaining O2 saturations in the mid 90s on room air. She's afebrile. Blood culture reveals no growth to date. She is maintained on ceftriaxone and azithromycin. Chest x-ray showed improvement of the left lower lobe. White count 10.8. Hemoglobin 11.5. Creatinine 0.57 On 12/19/2019 patient seen in follow-up on the regular medical surgical floor. She is resting comfortably in bed, she stated her breathing is comfortable, room air pulse ox is 96%, she been afebrile, vital signs have been stable. She's had no fever or chills, no chest pains. She is on combination of azithromycin and Rocephin for community-acquired pneumonia, she has had stable vital signs, today's chest x-ray shows improving left lower lobe infiltrate, and stable nodule in left lung base. CTA chest was elevated in view of elevated d-dimer, but showed no evidence for acute pulmonary embolism, and only showed evidence of old granulomatous disease, and left lower lobe acute pneumonic consolidation. Today's labs have been reviewed, showing white blood cell count is at 22.6, hemoglobin of 10.4, electrolytes and renal profile unremarkable. Objective - Vital Signs Vital signs: Vital Signs Temp 98.0 F 12/19/19 16:05 Pulse 85 12/19/19 16:05 Resp 16 12/19/19 16:05 BP 145/75 12/19/19 16:05 Pulse Ox 96 12/19/19 16:05 Intake & Output 12/18/19 12/19/19 12/19/19 18:59 06:59 18:59 Intake Total 200 Balance 200 Intake: Oral 200 Other: Voiding Method Toilet # Voids 2 3 # Bowel Movements 3 - Exam GENERAL EXAM: Alert, active, 59-year-old female patient, on room air, comfortable in no apparent distress. HEAD: Normocephalic. EYES: Normal reaction of pupils, equal size. NOSE: Clear with pink turbinates. THROAT: Erythema no exudates. NECK: No masses, no JVD. CHEST: No chest wall deformity. LUNGS: Equal air entry with crackles in the left base. CVS: S1 and S2 normal with no audible murmur, regular rhythm. ABDOMEN: No hepatosplenomegaly, normal bowel sounds, no guarding or rigidity. SPINE: No scoliosis or deformity SKIN: No rashes CENTRAL NERVOUS SYSTEM: No focal deficits, tone is normal in all 4 extremities. EXTREMITIES: There is no peripheral edema. No clubbing, no cyanosis. Peripheral pulses are intact. - Labs CBC & Chem 7: 12/19/19 06:58 12/19/19 06:58 Labs: Abnormal Lab Results - Last 24 Hours (Table) 12/18/19 12/18/19 12/18/19 Range/Units 07:19 12:06 20:27 WBC (3.8-10.6) k/uL RBC (3.80-5.40) m/uL Hgb (11.4-16.0) gm/dL Hct (34.0-46.0) % Plt Count (150-450) k/uL Neutrophils # (1.3-7.7) k/uL Anion Gap (4.00-12.00) mmol/L BUN/Creatinine Ratio (12.00-20.00) Ratio Glucose (70-110) mg/dL POC Glucose (mg/dL) 142 H (75-99) mg/dL Procalcitonin 0.17 H (0.02-0.09) ng/mL EBV Capsid Ag IgG Intrp POSITIVE H (NEGATIVE) EBV Nuc Ag IgG Interp POSITIVE H (NEGATIVE) 12/19/19 12/19/19 12/19/19 Range/Units 06:52 06:58 06:58 WBC 22.6 H (3.8-10.6) k/uL RBC 3.59 L (3.80-5.40) m/uL Hgb 10.4 L (11.4-16.0) gm/dL Hct 33.2 L (34.0-46.0) % Plt Count 532 H (150-450) k/uL Neutrophils # 20.9 H (1.3-7.7) k/uL Anion Gap 12.30 H (4.00-12.00) mmol/L BUN/Creatinine Ratio 21.67 H (12.00-20.00) Ratio Glucose 127 H (70-110) mg/dL POC Glucose (mg/dL) 138 H (75-99) mg/dL Procalcitonin (0.02-0.09) ng/mL EBV Capsid Ag IgG Intrp (NEGATIVE) EBV Nuc Ag IgG Interp (NEGATIVE) 12/19/19 Range/Units 11:34 WBC (3.8-10.6) k/uL RBC (3.80-5.40) m/uL Hgb (11.4-16.0) gm/dL Hct (34.0-46.0) % Plt Count (150-450) k/uL Neutrophils # (1.3-7.7) k/uL Anion Gap (4.00-12.00) mmol/L BUN/Creatinine Ratio (12.00-20.00) Ratio Glucose (70-110) mg/dL POC Glucose (mg/dL) 121 H (75-99) mg/dL Procalcitonin (0.02-0.09) ng/mL EBV Capsid Ag IgG Intrp (NEGATIVE) EBV Nuc Ag IgG Interp (NEGATIVE) Microbiology - Last 24 Hours (Table) 12/16/19 16:12 Group A Strep Throat Culture - Final Throat 12/16/19 15:50 Blood Culture - Preliminary Blood No Growth after 48 hours Assessment and Plan Plan: Assessment: 1 Febrile illness secondary to left lower lobe pneumonia, community-acquired. Influenza screen negative. CoVID screen negative, febrile pattern improved 2 Dyspnea secondary to acute left lower lobe pneumonia, improved 3 History of seasonal ALLERGIES. 4 History of gastroesophageal reflux disease 5 History of alcohol use 6 elevated d-dimer, CT chest showed no evidence of pulmonary embolism Plan: Patient has been clinically stable, no acute events overnight, febrile pattern has improved, patient has been afebrile in the last 48 hours. Increase activity as tolerated, no evidence of PE on the CT chest, today chest x-ray shows some improvement in the appearance left lower lobe infiltrate. From pulmonary p erspective patient is doing better, and could be considered for discharge home. Need outpatient follow-up with Dr. Gabriel in the office in 7-10 days I performed a history & physical examination of the patient and discussed their management with my nurse practitioner, Doretha Paredes. I reviewed the nurse practitioner's note and agree with the documented findings and plan of care. Lung sounds are positive for diminished breath sounds. The findings and the impression was discussed with the patient. I attest to the documentation by the nurse practitioner. Time with Patient: Less than 30
[2019-12-19] MEDS ORDERED: HALOPERIDOL LACTATE 5 MG/ML 1 ML VIAL IM PRN (17:25)
[2019-12-19] MEDS: AZITHROMYCIN 500 MG in SODIUM CHLORIDE 0.9% 250 ML IVPB SCH (18:04)
--- NOTE | 2019-12-19 18:30 | CT ---
EXAMINATION TYPE: CT brain wo con DATE OF EXAM: 12/19/2019 COMPARISON: None HISTORY: AMS CT DLP: 1033.7 mGycm Automated exposure control for dose reduction was used. Ventricles have normal size. There is no mass effect nor midline shift. There is no evidence of intra cranial hemorrhage. Calvarium is intact. There is no evidence of cerebral edema. There is very little pneumatization of the mastoid sinuses. IMPRESSION: Negative CT scan of the brain. Bilateral mastoiditis.
--- NOTE | 2019-12-19 18:58 | PN ---
PROGRESS NOTE DATE OF SERVICE: 12/19/2019 This 59-year-old woman who was admitted with acute left lower lobe pneumonia, possibly community-acquired, as well as left pleural effusion is being closely monitored. Patient was confused and delirious today. The patient also has infectious mononucleosis. The patient is being closely monitored at this time. The CT angio is negative pulmonary for embolism. D-dimer is elevated. Past medical history reviewed. Review of systems could not be taken; the patient is slightly confused. CURRENT MEDICATIONS: Tylenol, Xanax, Zithromax, Rocephin, steroids, folic acid, guaifenesin, heparin, Motrin, Claritin, multivitamins, Narcan, Protonix. PHYSICAL EXAMINATION: Patient is alert, oriented x2. Pulse 85, blood pressure 145/74, respirations 16, temperature 98 degrees, pulse ox 96% on room air. HEENT: Conjunctivae normal. NECK: No jugular venous distention. CARDIOVASCULAR SYSTEM: S1, S2 muffled. RESPIRATORY SYSTEM: Breath sounds diminished at the bases. A few scattered rhonchi and crackles. ABDOMEN: Soft, non-tender. NERVOUS SYSTEM: No focal deficit. LABS: WBC 22.6, hemoglobin 10.4. Sodium 137, potassium 4.4. ASSESSMENT: 1. Acute left lower lobe pneumonia, possibly community-acquired as well as left pleural effusion. 2. Infectious mononucleosis with a sore throat. 3. Shortness of breath, possibly reactive bronchospasm. 4. Confusion and change in mental status, possibly acute delirium. 5. Increased white count. 6. Elevated inflammatory markers, including CRP and D-dimer. 7. Hyponatremia. 8. COVID-19 negative. 9. Increased random blood sugar. 10.Gastroesophageal reflux disease. 11.History of overactive bladder. 12.History of seasonal allergies. 13.History of cholecystectomy. 14.Mild protein-calorie malnutrition with body mass index of 19.5. 15.FULL CODE. RECOMMENDATIONS AND DISCUSSION: I recommend to continue current medications, continue with the monitoring, symptomatic treatment. Otherwise, infectious mononucleosis is likely to be an old infection as well. Continue to monitor. Discontinue the steroids. CT of the brain without contrast. Psychiatric consultation. Guarded prognosis. Further recommendations to follow. MMODL / IJN: [id number] /
[2019-12-20] MEDS: PANTOPRAZOLE 40 MG TABLET PO SCH (06:53)
[2019-12-20] MEDS: FLUTICASONE 50MCG/SPRAY NASAL 16GM EA NOSTRIL SCH ×2 (09:20→20:24)
[2019-12-20] MEDS: LORATADINE 10 MG TAB PO SCH (09:21)
[2019-12-20] MEDS: HEPARIN SODIUM,PORCINE 5,000 UNIT/ML 1 ML VIAL SQ SCH ×2 (09:21→20:26)
[2019-12-20 10:13] LABS: Basophils % (A) 0 %; Eosinophils # (A) 0.1 k/uL (0-0.7); Eosinophils % (A) 0 %; HGB 11.3 gm/dL (11.4-16.0); Lymphocytes # (A) 2.2 k/uL (1.0-4.8); Lymphocytes % (A) 10 %; MCH 29.2 pg (25.0-35.0); MCHC 31.3 g/dL (31.0-37.0); MCV 93.3 fL (80.0-100.0); Mean Platelet Volume 6.4; Monocytes # (A) 1.3 k/uL (0-1.0); Monocytes % (A) 6 %; Neutrophils # (A) 17.6 k/uL (1.3-7.7); Neutrophils % (A) 82 %; Platelet Count 644 k/uL (150-450); RBC 3.86 m/uL (3.80-5.40); RDW 12.3 % (11.5-15.5); WBC 21.3 k/uL (3.8-10.6)
[2019-12-20 10:30] LABS: African American GFR (CKD) >90 (>60 ml/min/1.73 sqM); Anion Gap 6 mmol/L; Blood Urea Nitrogen 14 mg/dL (7-17); Calcium 8.9 mg/dL (8.4-10.2); Carbon Dioxide 31 mmol/L (22-30); Chloride 101 mmol/L (98-107); Glucose 115 mg/dL (74-99); Non-African American GFR(CKD) >90 (>60 ml/min/1.73 sqM); Potassium 3.8 mmol/L (3.5-5.1); Sodium 138 mmol/L (137-145)
[2019-12-20] MEDS: THIAMINE 100 MG TAB PO SCH (12:39)
[2019-12-20] MEDS: FOLIC ACID 1 MG TAB PO SCH (12:39)
[2019-12-20] MEDS: MULTIVITAMINS, THERA 1 EACH TAB PO SCH (12:39)
[2019-12-20] MEDS ORDERED: HALOPERIDOL LACTATE 5 MG/ML 1 ML VIAL IM PRN (12:57)
[2019-12-20] MEDS ORDERED: OLANZapine 2.5 MG TAB PO ONE (12:58)
--- NOTE | 2019-12-20 13:18 | P.CN ---
Psychiatric Consult - . Consult date: 12/20/19 Consult:: 12/20/19 13:00 IDENTIFYING DATA: This patient is a 59-year-old female who is currently and lives with her house has 3 kids and 5 grandchildren and is currently unemployed. REASON FOR REFERRAL: Psychiatry was consulted for altered mental status HISTORY OF PRESENT ILLNESS: The patient presented to the hospital for evaluation of her fever for several weeks initially. Patient was found to have right otitis media and exudative pharyngitis. Chest x-ray showed lower left lobe pneumonia and also patient was positive for mononucleosis. Patient was placed on antibiotics for community-acquired pneumonia and also given steroids IV. Patient appeared to be confused and agitated yesterday and had a CT scan of her brain for altered mental status which showed bilateral mastoiditis however no acute changes and a negative exam. Nurse taking care patient states that patient has been mostly coherent however for the past 2-3 days has been "acting strange" and has been impulsive and had her last dose of steroids yesterday. Daughter who was sitting in the room was agreeable to speak to property underwriter outside of the patient's room states that patient has been acting "manic and loopy" and also states that this is going on for the past couple of days and she is not at her baseline. Patient was agreeable to speak with property underwriter briefly in her room before eating her lunch. Patient appeared to be intrusive and fairly labile during conversation. She had a poor frustration tolerance. She was loud at times and spoke about the "beeping noises" that was coming out of the IV line. She was difficult to redirect at times and had a poor attention span. She was tearful and spoke about her 's driving. She also asked a trivia question to property underwriter "what's my grandson's favorite color" and made property underwriter gas several t imes before telling him the answer. She claims that her mood has been unstable" off the charts". She claims that her sleep has been poor in the hospital. She was alert and oriented 3 could spell "world backwards" and knows the current President. At this time patient denies any suicidal or homical ideations, intent or plan. Patient denies any auditory, visual hallucinations and denies any paran oia or delusions. Patients admits to using alcohol approximately 1-2 beers a week and denies any other recreational drugs including cigarettes. PAST PSYCHIATRIC HISTORY: Patient claims that she has no psychiatric history. Patient denies being on any psychiatric medications. Patient denies any previous psychiatric hospitalizations. Patient denies any psychiatric outpatient follow- up. Patient denies any history of suicide attempts in the past. PAST MEDICAL HISTORY: GERD, overactive bladder.. ALLERGIES: as per EMR. CHEMICAL DEPENDENCY HISTORY: as per HPI. FAMILY PSYCHIATRIC/SUBSTANCE USE HISTORY: denies SOCIAL HISTORY: Patient was born and raised in [place] and claims that she currently lives in [facility]. She states that she lives in a house with her has 3 kids and 5 grandchildren who she takes care of during the day. She states that she is currently unemployed. She states that she completed high school and almost finished her associates degree. 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 She denies any legal history. MENTAL STATUS EXAM: General Appearance: Patient appears to be stated age is alert, thin, intrusive and attempts to cooperate. Patient appears to have fair hygiene and grooming wearing hospital gown with fair eye contact. Behavior: Patient appears to be impulsive and irritable. Speech: Patient's speech is fluent and nonpressured. Mood/Affect: Patient reports their mood is "off the charts", affect is congruent, labile and tearful at times Suicidality/Homicidality: Patient denies having any suicidal or homicidal ideation intent or plan. Perceptions: Patient denies any visual hallucinations and denies any auditory hallucinations Though content/process: Patient rambles at times, tangential, loose associations. Bizarre content. Intrusive Memory and concentration: AOX3, poor attention span. knows who the current president is. 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 -Delirium precautions recommended with patient including - avoiding use of narcotics and LAND MANAGER sedatives, limit anticholinergic medications when possible, frequent re-orientation, minimize use of restraints, open window shades during the day and close them at night -Steroids were discontinued yesterday and were likely the cause of patient's current symptoms. Xanax was also discontinued as this could further exacerbate patient's altered mental status. -Would recommend the following medication changes/additions: Started Zyprexa 2.5 mg daily at bedtime scheduled. We will give 2.5 mg dose one time now. Ordered an additional 2.5 mg daily at bedtime when necessary for agitation/psychosis. Decreased Haldol IM when necessary to 2 mg every 6 hours for agitation. -Communicated plan to patient's nurse -Will continue to follow along -Please contact with any questions.
--- NOTE | 2019-12-20 15:20 | PN ---
PROGRESS NOTE DATE OF SERVICE: 12/20/2019 This is a 59-year-old woman who was admitted with acute left lower pneumonia, possibly community-acquired, as well as left pleural effusion, is being closely monitored. The patient has some significant daily respiratory at this time. A CT brain was done which showed no acute abnormality and Psychiatry has seen the patient and recommended Zyprexa 2.5 mg daily at bedtime and continue to monitor. PAST MEDICAL HISTORY: Reviewed. REVIEW OF SYSTEMS: CARDIOVASCULAR SYSTEM: No angina or palpitation. RESPIRATION: As mentioned earlier. GI: As mentioned earlier. : No dysuria. NERVOUS SYSTEM: As mentioned earlier. CURRENT MEDICATIONS: Reviewed and include; 1. Tylenol. 2. Zithromax 500 mg. 3. Rocephin. 4. Flonase. 5. Folic acid. 6. Robitussin. 7. Haldol. 8. Heparin. 9. Claritin. 10.Multivitamin. 11.Narcan. 12.Zyprexa. 13.Protonix. PHYSICAL EXAM: Patient is alert, oriented x3. Pulse is 79. Blood pressure 130/68, respirations 16, temperature 97.7, pulse ox 98% on room air. HEENT: Conjunctivae normal. NECK: No jugular venous distension. CARDIOVASCULAR SYSTEM: S1, S2, muffled. RESPIRATION: Breath sounds diminished at the bases, a few scattered rhonchi, no crackles. ABDOMEN: Soft, nontender. LEGS: No edema, no swelling. NERVOUS SYSTEM: No focal deficits. LABS: WBC 21.2, hemoglobin is 11.3. ASSESSMENT: 1. Acute left lower lobe pneumonia, possibly community-acquired as well as left pleural effusion. 2. Infectious mononucleosis antibody positive IgG. 3. Shortness of breath, possible reactive bronchospasm. 4. Confusion and change in mental status, possible acute delirium, possibly medication induced, possible steroid psychosis. 5. Increased WBC. 6. Elevated inflammatory markers including CRP and D-dimer. 7. Hyponatremia. 8. COVID-19 negative. 9. Increased random blood sugar. 10.Gastroesophageal reflux disease. 11.History of for overactive bladder. 12.History of seasonal allergies. 13.History of cholecystectomy. 14.Mild protein calorie malnutrition with body mass index of 19.5. 15.FULL CODE. RECOMMENDATION: Recommend to continue current medications, continue with the monitoring and symptomatic treatment. Otherwise at this time Zyprexa. Psychiatry notes noted. Continue the current medications. Prognosis guarded because of multiple complex medical issues. Further recommendations to follow. MMODL / IJN: [id number] /
[2019-12-20] MEDS: AZITHROMYCIN 500 MG in SODIUM CHLORIDE 0.9% 250 ML IVPB SCH (15:41)
--- NOTE | 2019-12-20 16:26 | PN ---
PROGRESS NOTE PULMONARY/CRITICAL CARE PROGRESS NOTE: DATE OF SERVICE: 12/20/2019 This is a 59-year-old female who was admitted with a diagnosis of left lower lobe pneumonia. It is community-acquired. Her influenza and COVID screens were negative. Her most recent chest x-ray shows improvement. The patient apparently could be ready for discharge, but her daughter Jolynn was in the room and indicated that Mom is having some psychologic/psychiatric issues which might prevent discharge. In addition, the patient has a history of seasonal allergies, acid reflux disease, alcohol use and an elevated D-dimer without evidence of CT angiographic evidence of pulmonary embolism. PHYSICAL EXAMINATION: VITAL SIGNS: Current vital signs are stable. Temperature is 97.9, heart rate 77, respiratory rate 18, blood pressure 141/83, mean 102, room-air saturation 98%. GENERAL APPEARANCE: She appears in no acute distress. HEENT: Examination is grossly unremarkable. She is not wearing any supplemental oxygen. NECK: Supple. Full range of motion. No adenopathy. Neck veins are flat. CARDIOVASCULAR: Examination reveals regular rhythm and rate. Heart rate 70. S1, S2 normal. No S3, S4 or murmur. LUNGS: Lungs reveal mostly clear breath sounds. A few scattered mild rhonchi. No wheezes or crackles. ABDOMEN: Soft. Bowel sounds are heard. EXTREMITIES: Intact. No cyanosis, clubbing or edema. SKIN: Without rash. NEUROLOGIC: Neurologic examination is nonfocal. LABS/IMAGING: Reviewed. White count 21.3, hemoglobin 11.3, hematocrit 36.0, platelet count 644,000. Sodium, potassium and chloride normal. CO2 31. Anion gap is 6. BUN and creatinine were 14 and 0.65. Microbiologic data is all negative. She had a brain CT which was negative. A CT angiogram which showed no evidence of acute pulmonary embolism. There are some left lower lobe consolidative changes. The most recent chest x-ray was reviewed. Medications are reviewed. ASSESSMENT: 1. Left lower lobe pneumonia, clinically and radiographically improved. 2. COVID and influenza screening all negative. 3. No evidence of pulmonary embolism on CT angiogram. 4. Negative CT of the brain. 5. Dyspnea, resolved, secondary to pneumonia. 6. History of seasonal allergies. 7. History of gastroesophageal reflux disease. 8. History of alcohol use. 9. Acute on chronic psychologic/psychiatric disturbances which may be keeping the patient in the hospital longer than necessary. PLAN: From our perspective, purely from the pulmonary standpoint, the patient could be discharged. Her respiratory status is much more stable. She is not requiring any supplemental oxygen. The patient's chest x-ray shows improvement of the left lower lobe pneumonia. Additional recommendations and suggestions are forthcoming. MMODL / IJN: [id number] /
[2019-12-20] MEDS ORDERED: OLANZapine 2.5 MG TAB PO SCH (21:00)
[2019-12-20] MEDS ORDERED: OLANZapine 5 MG TAB PO PRN (21:00)
[2019-12-21] MEDS: PANTOPRAZOLE 40 MG TABLET PO SCH (06:19)
[2019-12-21] MEDS: HEPARIN SODIUM,PORCINE 5,000 UNIT/ML 1 ML VIAL SQ SCH ×2 (08:31→19:55)
[2019-12-21] MEDS: LORATADINE 10 MG TAB PO SCH (08:34)
[2019-12-21] MEDS: FLUTICASONE 50MCG/SPRAY NASAL 16GM EA NOSTRIL SCH ×2 (08:35→19:54)
[2019-12-21] MEDS: FOLIC ACID 1 MG TAB PO SCH (11:20)
[2019-12-21] MEDS: MULTIVITAMINS, THERA 1 EACH TAB PO SCH (11:20)
[2019-12-21] MEDS: OLANZapine 2.5 MG TAB PO SCH (11:20)
[2019-12-21] MEDS: THIAMINE 100 MG TAB PO SCH (11:20)
--- NOTE | 2019-12-21 11:26 | P.PN ---
Progress Note - Text Progress Note Date: 12/21/19 Interval History: Patient was seen today for psychiatric follow-up regarding patient's mood and lability. Patient was started on Zyprexa yesterday and received 2 doses of 2.5 mg. According to patient's nurse states that she slept "on and off last night" and nurse also claims the patient continues to be labile, impulsive and tearful at times. Patient was seen in the room sitting on her chair and was agreeable to speak to leader writer. She claims that she did not know later was and asked for his name. She was attempting to walk. However patient appeared to be labile and loud at times and told other nurses aids and techs entering the room to leave abruptly. She was illogical at times and had bizarre thought content. She claims that she has been taking her medications and states that "I'm trying to do better". She was inappropriate at times during the interview continues to be labile. At this time patient denies any suicidal or homical ideations, intent or plan. Patient denies any auditory, visual hallucinations and denies any paranoia or delusions. Patient denies any side effects from the medications and has been compliant with meds. Mental Status Exam: General Appearance: Patient appears to be stated age is alert, thin, intrusive and attempts to cooperate. Patient appears to have fair hygiene and grooming wearing hospital gown with fair eye contact. Behavior: Patient appears to be impulsive and irritable, mildly improving. Speech: Patient's speech is fluent and nonpressured. Mood/Affect: Patient reports their mood is "up and down", affect is congruent, labile, not tearful today. Suicidality/Homicidality: Patient denies having any suicidal or homicidal ideation intent or plan. Perceptions: Patient denies any visual hallucinations and denies any auditory hallucinations Though content/process: Patient rambles at times, tangential, loose associations. Bizarre content. Intrusive, mildly improving. Memory and concentration: AOX3, poor attention span. 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 -Delirium precautions recommended with patient including - avoiding use of narcotics and MANAGING CONSULTANT sedatives, limit anticholinergic medications when possible, frequent re-orientation, minimize use of restraints, open window shades during the day and close them at night -Would recommend the following medication changes/additions: increased Zyprexa 2.5 mg daily + 5mg at bedtime scheduled. Ordered an additional 2.5 mg daily at bedtime when necessary for agitation/psychosis. continue with Haldol IM when necessary to 2 mg every 6 hours for agitation. -Communicated plan to patient's nurse -Will continue to follow along -Please contact with any questions.
--- NOTE | 2019-12-21 12:33 | P.PN ---
Subjective Progress Note Date: 12/21/19 Principal diagnosis: Community-acquired left lower lobe pneumonia This is a 59-year-old female patient who follows with Dr. Singleton as her primary care provider. She has a history of alcohol use, gastroesophageal reflux disease, seasonal ALLERGIES. She's been having a 2 week history of sore throat and right ear pain cough with yellow productive sputum and fever. She had CoVID 19 test earlier this week that was reported as negative. She presented here yesterday to the emergency room with ongoing fever. She presented with a T-max of 105.5. Chest x-ray revealed a limited left lower lobe infiltrate/effusion. She is seen today in consultation on the regular medical floor. She is awake and alert in no acute distress. She is maintaining O2 saturations in the mid 90s on 2 L/m per nasal cannula. Currently afebrile. Hemodynamically stable. Throat culture pending. Heterophile antibody positive. White count 10.8. Hemoglobin 12.0. Sodium 135. Potassium 4.5. Creatinine 0.70. Influenza screen negative. Rapid strep negative. She's been initiated on ceftriaxone and azithromycin. 0.9 normal saline at 130 ML's per hour. Patient is seen today 12/18/2019 in follow-up on the regular medical floor. She is awake and alert in no acute distress. She's been up ambulating in her room. She is breathing quite a bit easier today as compared to yesterday. Less cough and congestion. Maintaining O2 saturations in the mid 90s on room air. She's afebrile. Blood culture reveals no growth to date. She is maintained on ceftriaxone and azithromycin. Chest x-ray showed improvement of the left lower lobe. White count 10.8. Hemoglobin 11.5. Creatinine 0.57 On 12/19/2019 patient seen in follow-up on the regular medical surgical floor. She is resting comfortably in bed, she stated her breathing is comfortable, room air pulse ox is 96%, she been afebrile, vital signs have been stable. She's had no fever or chills, no chest pains. She is on combination of azithromycin and Rocephin for community-acquired pneumonia, she has had stable vital signs, today's chest x-ray shows improving left lower lobe infiltrate, and stable nodule in left lung base. CTA chest was elevated in view of elevated d-dimer, but showed no evidence for acute pulmonary embolism, and only showed evidence of old granulomatous disease, and left lower lobe acute pneumonic consolidation. Today's labs have been reviewed, showing white blood cell count is at 22.6, hemoglobin of 10.4, electrolytes and renal profile unremarkable. On 12/21/2019 patient seen in follow-up on the regular medical surgical floor. She is awake and alert, sitting up in the chair, denies any specific complaints, room air pulse ox 96%, hemodynamically stable, denies any shortness of breath, no fever or chills. Lung sounds are clear to auscultation, no rhonchi, no wheezing no rales. Patient has been treated with a combination of azithromycin and Rocephin for left lower lobe pneumonia, community-acquired. Today's labs have been reviewed, showing white blood cell count 21.3, hemoglobin of 11.3, luis ctrolytes within normal limits with the exception of CO2 which is a 31, renal profile is unremarkable. No cough or congestion. Patient was seen by psychiatry for labile mood, bizarre comments, she has been started on Zyprexa and Haldol Objective - Vital Signs Vital signs: Vital Signs Temp 98.7 F 12/21/19 08:10 Pulse 88 12/21/19 08:10 Resp 26 H 12/21/19 08:10 BP 143/88 12/21/19 08:10 Pulse Ox 96 12/21/19 08:10 Intake & Output 12/20/19 12/21/19 12/21/19 18:59 06:59 18:59 Weight 49.895 kg Other: Voiding Method Toilet # Voids 2 1 1 - Exam GENERAL EXAM: Alert, active, 59-year-old female patient, on room air, comfortable in no apparent distress. Patient has been noted to make bizarre comments, has been evaluated by psychiatry HEAD: Normocephalic. EYES: Normal reaction of pupils, equal size. NOSE: Clear with pink turbinates. THROAT: Erythema no exudates. NECK: No masses, no JVD. CHEST: No chest wall deformity. LUNGS: Equal air entry with crackles in the left base. CVS: S1 and S2 normal with no audible murmur, regular rhythm. ABDOMEN: No hepatosplenomegaly, normal bowel sounds, no guarding or rigidity. SPINE: No scoliosis or deformity SKIN: No rashes CENTRAL NERVOUS SYSTEM: No focal deficits, tone is normal in all 4 extremities. EXTREMITIES: There is no peripheral edema. No clubbing, no cyanosis. Peripheral pulses are intact. - Labs CBC & Chem 7: 12/20/19 09:43 12/20/19 09:43 Labs: Microbiology - Last 24 Hours (Table) 12/16/19 15:50 Blood Culture - Preliminary Blood No Growth after 96 hours Assessment and Plan Plan: Assessment: 1 Febrile illness secondary to left lower lobe pneumonia, community-acquired. Influenza screen negative. CoVID screen negative, febrile pattern improved 2 Dyspnea secondary to acute left lower lobe pneumonia, improved 3 History of seasonal ALLERGIES. 4 History of gastroesophageal reflux disease 5 History of alcohol use 6 elevated d-dimer, CT chest showed no evidence of pulmonary embolism 7 acute psychosis possibly related to medications (steroids), psychiatric service is following, steroids have been discontinued, brain CT is negative Plan: Clinically stable, no fever or chills, maintaining stable O2 saturations on room air, vital signs are stable, no acute events overnight, leukocytosis slightly improved, cultures are negative to date. Psychiatric consultation has been noted, patient still has abnormal behavior with bizarre thought processes and bi zarre comments. Antipsychotics per psychiatric services. Steroids have been discontinued. Maintain safety precautions, from pulmonary perspective she can considered for discharge home with outpatient follow-up with Dr. Gabriel any office I performed a history & physical examination of the patient and discussed their management with my nurse practitioner, Doretha Paredes. I reviewed the nurse janice swain's note and agree with the documented findings and plan of care. Lung sounds are positive for diminished breath sounds. The findings and the impression was discussed with the patient. I attest to the documentation by the nurse practitioner. Time with Patient: Less than 30
[2019-12-21] MEDS: AZITHROMYCIN 500 MG TAB PO SCH (16:05)
--- NOTE | 2019-12-21 17:54 | PN ---
PROGRESS NOTE DATE OF SERVICE: 12/21/2019 This 59-year-old woman who was admitted with pneumonia also has change in mental status, acute delirium. Infectious mononucleosis appears to be chronic in nature. No chest pain. No palpitations. No fever. Patient is slightly delirious, slightly improved. Psychiatry has seen the patient. Medications were adjusted at this time. Dr. Singleton is following the patient in the outpatient setting. PHYSICAL EXAMINATION: Alert and oriented x3. Pulse 71, blood pressure 142/78, respiration 12, temperature 97.4, pulse ox 96% on room air. HEENT: Conjunctivae normal. NECK: No jugular venous distention. CARDIOVASCULAR SYSTEM: S1, S2 muffled. RESPIRATORY SYSTEM: Breath sounds diminished at the bases. A few scattered rhonchi and crackles. ABDOMEN: Soft, non-tender. LEGS: No edema. No swelling. NERVOUS SYSTEM: No focal deficit. LABS: WBC 21.3, hemoglobin 11.3 sodium 138, potassium 3.8. ASSESSMENT: 1. Acute left lower lobe pneumonia, possibly community-acquired, as well as left pleural effusion. 2. Previous history of infectious mononucleosis with antibody positive for IgG only. 3. Shortness of breath; possibly reactive bronchospasm. 4. Confusion and change in mental status, possible acute delirium, possibly medication- induced, possibly steroid psychosis. 5. Increased white count. 6. Elevated inflammatory markers, including CRP and D-dimer. 7. Hyponatremia. 8. COVID-19 negative. 9. Increased random blood sugar. 10.Gastroesophageal reflux disease. 11.History of overactive bladder. 12.History of seasonal allergies. 13.History of cholecystectomy. 14.Mild protein-calorie malnutrition with body mass index of 19.5. 15.FULL CODE. RECOMMENDATIONS AND DISCUSSION: I recommend to continue current medications, continue symptomatic treatment. Psychiatry input appreciated. The patient is currently on Zyprexa 2.5 mg daily and 5 mg at bedtime in addition to 0.5 mg daily at bedtime and as necessary. Haldol IM 2 mg q.6 p.r.n. also noted. Otherwise I would recommend to continue the current medication. I would also recommend repeat D-dimer and CRP also. Discussed with the patient's at length. Prognosis is guarded. Her understands and agrees. Further recommendations to follow. There is no need for inpatient psych transfer, according to Psychiatry. Otherwise, the patient is feeling better. The patient will be discharged home with further medications. MMODL / IJN: [id number] /
[2019-12-21] MEDS: OLANZapine 5 MG TAB PO SCH (19:55)
[2019-12-22] MEDS: HEPARIN SODIUM,PORCINE 5,000 UNIT/ML 1 ML VIAL SQ SCH ×2 (08:56→20:00)
[2019-12-22] MEDS: OLANZapine 2.5 MG TAB PO SCH (08:56)
[2019-12-22] MEDS: FOLIC ACID 1 MG TAB PO SCH (08:57)
[2019-12-22] MEDS: FLUTICASONE 50MCG/SPRAY NASAL 16GM EA NOSTRIL SCH ×2 (08:57→19:59)
[2019-12-22] MEDS: PANTOPRAZOLE 40 MG TABLET PO SCH (08:57)
[2019-12-22] MEDS: THIAMINE 100 MG TAB PO SCH (08:57)
[2019-12-22] MEDS: LORATADINE 10 MG TAB PO SCH (08:57)
[2019-12-22] MEDS: MULTIVITAMINS, THERA 1 EACH TAB PO SCH (13:35)
--- NOTE | 2019-12-22 14:03 | P.PN ---
Progress Note - Text Progress Note Date: 12/22/19 Interval History: Patient was seen today for psychiatric follow-up regarding patient's mood, biz arre behavior and lability. Patient's dose of Zyprexa was increased yesterday and patient has been taking her medications. Patient's nurse states that she has been saying bizarre things and acting inappropriately and is medically discharged today. Patient was observed picking out of the window in her room and quickly ran away from the window and sat down before health science writer came into the room. Patient continues to be bizarre and intrusive asking several inappropriate questions towards health science writer. She speaks rapidly. She continues to have a flight of ideas and claims that she is having racing thoughts. She states that she is "trying hard to get rid of them". She spoke about "trivia questions and wanted to ask health science writer different questions which were inappropriate to conversation. Patient appeared to have mild improvement in her lability and was not tearful today. At this time patient denies any suicidal or homical ideations, intent or plan. Patient denies any auditory, visual hallucinations and denies any paranoia or delusions. Patient denies any side effects from the medications and has been compliant with meds. Mental Status Exam: General Appearance: Patient appears to be stated age is alert, thin, intrusive and attempts to cooperate. Patient appears to have fair hygiene and grooming wearing hospital gown with fair eye contact. Behavior: Patient appears to be impulsive and irritable, mildly improving. Speech: Patient's speech is fluent and nonpressured. Mood/Affect: Patient reports their mood is "all over", affect is congruent, labile, not tearful today. Suicidality/Homicidality: Patient denies having any suicidal or homicidal ideation intent or plan. Perceptions: Patient denies any visual hallucinations and denies any auditory hallucinations Though content/process: Patient rambles at times, tangential, loose associations. Bizarre content. Intrusive, mildly improving. Memory and concentration: AOX3, poor attention span. 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 -Would recommend the following medication changes/additions: Continue with Zyprexa 2.5 mg daily + 5mg at bedtime scheduled, in addition to 2.5 mg daily at bedtime when necessary for agitation/psychosis. continue with Haldol IM when necessary to 2 mg every 6 hours for agitation. -Communicated plan to patient's nurse about patients transfer when a bed is available. -Will sign off at this time. -Please contact with any questions.
--- NOTE | 2019-12-22 14:30 | P.PN ---
Subjective Progress Note Date: 12/22/19 Principal diagnosis: Community-acquired left lower lobe pneumonia This is a 59-year-old female patient who follows with Dr. Singleton as her primary care provider. She has a history of alcohol use, gastroesophageal reflux disease, seasonal ALLERGIES. She's been having a 2 week history of sore throat and right ear pain cough with yellow productive sputum and fever. She had CoVID 19 test earlier this week that was reported as negative. She presented here yesterday to the emergency room with ongoing fever. She presented with a T-max of 105.5. Chest x-ray revealed a limited left lower lobe infiltrate/effusion. She is seen today in consultation on the regular medical floor. She is awake and alert in no acute distress. She is maintaining O2 saturations in the mid 90s on 2 L/m per nasal cannula. Currently afebrile. Hemodynamically stable. Throat culture pending. Heterophile antibody positive. White count 10.8. Hemoglobin 12.0. Sodium 135. Potassium 4.5. Creatinine 0.70. Influenza screen negative. Rapid strep negative. She's been initiated on ceftriaxone and azithromycin. 0.9 normal saline at 130 ML's per hour. Patient is seen today 12/18/2019 in follow-up on the regular medical floor. She is awake and alert in no acute distress. She's been up ambulating in her room. She is breathing quite a bit easier today as compared to yesterday. Less cough and congestion. Maintaining O2 saturations in the mid 90s on room air. She's afebrile. Blood culture reveals no growth to date. She is maintained on ceftriaxone and azithromycin. Chest x-ray showed improvement of the left lower lobe. White count 10.8. Hemoglobin 11.5. Creatinine 0.57 On 12/19/2019 patient seen in follow-up on the regular medical surgical floor. She is resting comfortably in bed, she stated her breathing is comfortable, room air pulse ox is 96%, she been afebrile, vital signs have been stable. She's had no fever or chills, no chest pains. She is on combination of azithromycin and Rocephin for community-acquired pneumonia, she has had stable vital signs, today's chest x-ray shows improving left lower lobe infiltrate, and stable nodule in left lung base. CTA chest was elevated in view of elevated d-dimer, but showed no evidence for acute pulmonary embolism, and only showed evidence of old granulomatous disease, and left lower lobe acute pneumonic consolidation. Today's labs have been reviewed, showing white blood cell count is at 22.6, hemoglobin of 10.4, electrolytes and renal profile unremarkable. On 12/21/2019 patient seen in follow-up on the regular medical surgical floor. She is awake and alert, sitting up in the chair, denies any specific complaints, room air pulse ox 96%, hemodynamically stable, denies any shortness of breath, no fever or chills. Lung sounds are clear to auscultation, no rhonchi, no wheezing no rales. Patient has been treated with a combination of azithromycin and Rocephin for left lower lobe pneumonia, community-acquired. Today's labs have been reviewed, showing white blood cell count 21.3, hemoglobin of 11.3, luis ctrolytes within normal limits with the exception of CO2 which is a 31, renal profile is unremarkable. No cough or congestion. Patient was seen by psychiatry for labile mood, bizarre comments, she has been started on Zyprexa and Haldol On 12/22/2019 patient seen in follow-up on the regular medical surgical, clinically patient is stable, lung sounds are clear, no chest pain, no shortness of breath, cough or congestion, vitals are stable, room air pulse ox of 96%, no acute events overnight, no new labs today, CRP is trending down, follow-up d- dimer is 1.4, patient had no evidence of pulmonary embolism on CT chest. She was treated with azithromycin and Rocephin, she was clear for discharge from pulmonary perspective however patient is being seen by psychiatry for acute psychosis possibly related to medications (steroids). On today's exam patient is speaking quite loudly, and the bizarre manner, with exaggerated intonation. She is being followed by psychiatry, and she was started on Zyprexa and Haldol Objective - Vital Signs Vital signs: Vital Signs Temp 97.5 F L 12/22/19 07:30 Pulse 88 12/22/19 07:30 Resp 16 12/22/19 07:30 BP 121/74 12/22/19 07:30 Pulse Ox 96 12/22/19 07:30 Intake & Output 0912/22/19 12/22/19 18:59 06:59 18:59 Intake Total 480 360 Balance 480 360 Weight 49.895 kg Intake: Oral 480 360 Other: # Voids 1 2 - Exam GENERAL EXAM: Alert, active, 59-year-old female patient, on room air, with pulse ox of 96% comfortable in no apparent distress. Patient has been noted to make bizarre comments, has been evaluated by psychiatry HEAD: Normocephalic. EYES: Normal reaction of pupils, equal size. NOSE: Clear with pink turbinates. THROAT: Erythema no exudates. NECK: No masses, no JVD. CHEST: No chest wall deformity. LUNGS: Equal air entry with crackles in the left base. CVS: S1 and S2 normal with no audible murmur, regular rhythm. ABDOMEN: No hepatosplenomegaly, normal bowel sounds, no guarding or rigidity. SPINE: No scoliosis or deformity SKIN: No rashes CENTRAL NERVOUS SYSTEM: No focal deficits, tone is normal in all 4 extremities. EXTREMITIES: There is no peripheral edema. No clubbing, no cyanosis. Peripheral pulses are intact. - Labs CBC & Chem 7: 12/20/19 09:43 12/20/19 09:43 Labs: Abnormal Lab Results - Last 24 Hours (Table) 12/21/19 12/21/19 Range/Units 18:38 18:38 D-Dimer 1.40 H (<0.60) mg/L FEU C-Reactive Protein 138.7 H (<10.0) mg/L Microbiology - Last 24 Hours (Table) 12/16/19 15:50 Blood Culture - Preliminary Blood No Growth after 120 hours Assessment and Plan Plan: Assessment: 1 Febrile illness secondary to left lower lobe pneumonia, community-acquired. Influenza screen negative. CoVID screen negative, febrile pattern improved 2 Dyspnea secondary to acute left lower lobe pneumonia, improved 3 History of seasonal ALLERGIES. 4 History of gastroesophageal reflux disease 5 History of alcohol use 6 elevated d-dimer, CT chest showed no evidence of pulmonary embolism 7 acute psychosis possibly related to medications (steroids), psychiatric service is following, steroids have been discontinued, brain CT is negative Plan: Patient is doing well, clinically stable, no worsening dyspnea, no cough or congestion, she continues on antibiotic treatment for community-acquired pneumonia, she's been afebrile, vitals stable, he is being followed by psychiatry for acute psychosis. Maintain safety precautions. Patient will need outpatient follow-up with Dr. Walker in the office in 7-10 days I performed a history & physical examination of the patient and discussed their management with my nurse practitioner, Doretha Paredes. I reviewed the nurse practitioner's note and agree with the documented findings and plan of care. Lung sounds are positive for diminished breath sounds. The findings and the impression was discussed with the patient. I attest to the documentation by the nurse practitioner. Time with Patient: Less than 30
[2019-12-22] MEDS: AZITHROMYCIN 500 MG TAB PO SCH (18:26)
[2019-12-22] MEDS: OLANZapine 5 MG TAB PO SCH (19:59)
--- NOTE | 2019-12-23 06:04 | DS ---
DISCHARGE SUMMARY DATE OF SERVICE: 12/22/2019 FINAL DIAGNOSIS: 1. Acute left lower pneumonia possibly community-acquired, as well as left pleural effusion, improved. 2. Previous history of infectious mononucleosis, possibly with positive IgG antibody, no active infection. 3. Shortness of breath, possibly reactive bronchospasm. 4. Confused, change in mental status, possible acute delirium, possibly medication induced, possibly steroid psychosis. 5. Weight loss recently. 6. Increased WBC. 7. Elevated inflammatory markers including CRP and D-dimer. 8. Hyponatremia. 9. COVID-19 negative, ruled out. 10.Increased random blood sugar. 11.Gastroesophageal reflux disease. 12.History of overactive bladder. 13.History of seasonal allergies. 14.History of cholecystectomy. 15.Mild protein calorie malnutrition with body mass index of 19.5. 16.FULL CODE. DISPOSITION: The patient will be discharged in stable condition with a guarded prognosis. Total time 30 minutes. HISTORY OF PRESENT ILLNESS: This 59-year-old woman with a past medical history of multiple medical problems being followed by Dr. Sinlgeton in the outpatient setting was admitted with pneumonia, as well as pleural effusion. The patient was treated with antibiotics and steroids were also given for reactive bronchospasm. The patient improved significantly but however the patient developed psychotic symptoms, which was thought to be delirium and steroids were stopped and Zyprexa was initiated by Psychiatry. Patient improved significantly. The patient also had some inflammatory markers but the COVID-[address] Singleton. Recommended outpatient followup once the patient is stabilized, to rule out the possibility of any internal malignancy or other medical issues. PHYSICAL EXAMINATION: On exam, vitals are stable. Cardiovascular S1 and S2. Abdomen is soft. Nervous system; patient is still mildly confused. DISCHARGE DIET: Cardiac. ACTIVITY: Limited until followup. FOLLOWUP: Follow up Dr. Singleton and follow up with Dr. Gabriel as recommended. Follow up with Dr. Constantine Francois, ENT as recommended. Follow up with psychiatrist recommended. DISCHARGE MEDICATIONS ARE: 1. Claritin 10 mg daily. 2. Flonase 2 sprays daily. 3. Omeprazole 20 mg daily. 4. Tylenol p.r.n. 5. Ceftin 500 mg p.o. b.i.d. for 3 days. 6. Flagyl 500 mg q.8h for 3 days. 7. Folic acid 1 mg p.o. daily. 8. Multivitamins 1 p.o. daily. 9. Guaifenesin 10 mg b.i.d. p.r.n. 10.Thiamine 100 mg daily. 11.Zithromax 500 mg daily for 3 days. 12.Zyprexa 2.5 mg daily and 5 mg p.o. q.h.s. RADHA / BARBARA: [id number] /
[2019-12-23] MEDS: LORATADINE 10 MG TAB PO SCH (09:03)
[2019-12-23] MEDS: OLANZapine 2.5 MG TAB PO SCH (09:03)
[2019-12-23] MEDS: PANTOPRAZOLE 40 MG TABLET PO SCH (09:03)
[2019-12-23] MEDS: HEPARIN SODIUM,PORCINE 5,000 UNIT/ML 1 ML VIAL SQ SCH (09:04)
[2019-12-23] MEDS: FLUTICASONE 50MCG/SPRAY NASAL 16GM EA NOSTRIL SCH (09:04)
[2019-12-23 09:05] VITALS: RESP 17
[2019-12-23] MEDS ORDERED: CEFDINIR 300 MG CAP PO SCH (11:00)
--- NOTE | 2019-12-23 11:51 | P.PN ---
Progress Note - Text Progress Note Date: 12/23/19 Interval History: Patient was seen today for psychiatric follow-up regarding patient's mood, biz arre behavior and lability. Patient has been noted to be taking her medications as prescribed. Patient's nurse states that she has been saying bizarre things and acting inappropriately displaying "manic" behaviors in the room. Well Reactivator Operator attempted to speak with patient in the room and asked patient's family to leave the room briefly so patient can be evaluated alone. Patient appeared to be bizarre and continues to be intrusive and impulsive towards card writer hand. Patient asked card writer hand to leave several times inappropriately during conversation and even stated "if I give you a bar of soap willingly leave". She had headphones on and asked if she can put them on because of "all the noise". She continues to ask inappropriate questions to card writer hand during conversation and continues to speak rapidly. She continues to have a flight of ideas however patient states that these have gotten mildly better. She continues to state that she is "trying my best to do better" and asked several times about discharge. Patient appeared to have mild improvement in her lability and was not tearful today during exam. At this time patient denies any suicidal or homical ideations, intent or plan. Patient denies any auditory, visual hallucinations and denies any paranoia or delusions. Patient denies any side effects from the medications and has been compliant with meds. Patient was not sure of how long she slept last night on the medications. Mental Status Exam: General Appearance: Patient appears to be stated age is alert, thin, intrusive yet attempts to cooperate. Patient appears to have fair hygiene and grooming wearing hospital gown with intense eye contact. Behavior: Patient appears to be impulsive and irritable. Intense stare at card writer hand. Speech: Patient's speech is fluent and nonpressured. Mood/Affect: Patient reports their mood is "up and down", affect is congruent, labile, not tearful today. Suicidality/Homicidality: Patient denies having any suicidal or homicidal ideation intent or plan. Perceptions: Patient denies any visual hallucinations and denies any auditory hallucinations Though content/process: Patient rambles at times, tangential, loose associations. Flight of ideas, mildly improving. Bizarre content. Intrusive, mildly improving. Memory and concentration: AOX3, poor attention span. 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 -Would recommend the following medication changes/additions: Increased Zyprexa 2.5 mg daily + 7.5mg at bedtime scheduled, in addition to 2.5 mg daily at bedtim e when necessary for agitation/psychosis. continue with Haldol IM when necessary to 2 mg every 6 hours for agitation. -Communicated plan to patient's nurse about patients transfer when a bed is available. -Well Reactivator Operator spoke with patient's daughters and outside a patient's room about her condition and medications along with treatment and prognosis going forward. Well Reactivator Operator explained several times the risks of patient being let go from the hospital and possibly injuring herself and/or others unintentionally. Questions and concerns were addressed about patient's care and the process of psychiatric hospitalization. Patient's family requested to speak to patient's right advocate to "explore other options". -Will sign off at this time. -Please contact with any questions.
[2019-12-23] MEDS: MULTIVITAMINS, THERA 1 EACH TAB PO SCH (12:13)
[2019-12-23] MEDS: FOLIC ACID 1 MG TAB PO SCH (12:13)
[2019-12-23] MEDS: THIAMINE 100 MG TAB PO SCH (12:13)
--- NOTE | 2019-12-23 13:24 | P.PN ---
Subjective Progress Note Date: 12/23/19 Principal diagnosis: Community-acquired left lower lobe pneumonia This is a 59-year-old female patient who follows with Dr. Singleton as her primary care provider. She has a history of alcohol use, gastroesophageal reflux disease, seasonal ALLERGIES. She's been having a 2 week history of sore throat and right ear pain cough with yellow productive sputum and fever. She had CoVID 19 test earlier this week that was reported as negative. She presented here yesterday to the emergency room with ongoing fever. She presented with a T-max of 105.5. Chest x-ray revealed a limited left lower lobe infiltrate/effusion. She is seen today in consultation on the regular medical floor. She is awake and alert in no acute distress. She is maintaining O2 saturations in the mid 90s on 2 L/m per nasal cannula. Currently afebrile. Hemodynamically stable. Throat culture pending. Heterophile antibody positive. White count 10.8. Hemoglobin 12.0. Sodium 135. Potassium 4.5. Creatinine 0.70. Influenza screen negative. Rapid strep negative. She's been initiated on ceftriaxone and azithromycin. 0.9 normal saline at 130 ML's per hour. Patient is seen today 12/18/2019 in follow-up on the regular medical floor. She is awake and alert in no acute distress. She's been up ambulating in her room. She is breathing quite a bit easier today as compared to yesterday. Less cough and congestion. Maintaining O2 saturations in the mid 90s on room air. She's afebrile. Blood culture reveals no growth to date. She is maintained on ceftriaxone and azithromycin. Chest x-ray showed improvement of the left lower lobe. White count 10.8. Hemoglobin 11.5. Creatinine 0.57 On 12/19/2019 patient seen in follow-up on the regular medical surgical floor. She is resting comfortably in bed, she stated her breathing is comfortable, room air pulse ox is 96%, she been afebrile, vital signs have been stable. She's had no fever or chills, no chest pains. She is on combination of azithromycin and Rocephin for community-acquired pneumonia, she has had stable vital signs, today's chest x-ray shows improving left lower lobe infiltrate, and stable nodule in left lung base. CTA chest was elevated in view of elevated d-dimer, but showed no evidence for acute pulmonary embolism, and only showed evidence of old granulomatous disease, and left lower lobe acute pneumonic consolidation. Today's labs have been reviewed, showing white blood cell count is at 22.6, hemoglobin of 10.4, electrolytes and renal profile unremarkable. On 12/21/2019 patient seen in follow-up on the regular medical surgical floor. She is awake and alert, sitting up in the chair, denies any specific complaints, room air pulse ox 96%, hemodynamically stable, denies any shortness of breath, no fever or chills. Lung sounds are clear to auscultation, no rhonchi, no wheezing no rales. Patient has been treated with a combination of azithromycin and Rocephin for left lower lobe pneumonia, community-acquired. Today's labs have been reviewed, showing white blood cell count 21.3, hemoglobin of 11.3, luis ctrolytes within normal limits with the exception of CO2 which is a 31, renal profile is unremarkable. No cough or congestion. Patient was seen by psychiatry for labile mood, bizarre comments, she has been started on Zyprexa and Haldol On 12/22/2019 patient seen in follow-up on the regular medical surgical, clinically patient is stable, lung sounds are clear, no chest pain, no shortness of breath, cough or congestion, vitals are stable, room air pulse ox of 96%, no acute events overnight, no new labs today, CRP is trending down, follow-up d- dimer is 1.4, patient had no evidence of pulmonary embolism on CT chest. She was treated with azithromycin and Rocephin, she was clear for discharge from pulmonary perspective however patient is being seen by psychiatry for acute psychosis possibly related to medications (steroids). On today's exam patient is speaking quite loudly, and the bizarre manner, with exaggerated intonation. She is being followed by psychiatry, and she was started on Zyprexa and Haldol On 12/23/2019 patient seen in follow-up on medical surgical floor, from pulmonar y perspective patient has remained stable, no shortness of breath, clinically crackles at left lower base, no rhonchi no wheezing, patient has been on room air, she's been tolerating ambulation, no cough congestion or hemoptysis, patient is mainly having some psychiatric issues she is being followed by psychiatry please refer to the documentation. Vital Signs have been stable, pulse ox is 95%, breathing appears to be quite comfortable, no fever or chills, Ricki ALLERGY data has been reviewed, remains negative to date. Patient has been transitioned to oral Ceftin ear, and she remains on azithromycin for community acquired pneumonia. Objective - Vital Signs Vital signs: Vital Signs Temp 97.5 F L 12/23/19 07:00 Pulse 87 12/23/19 07:00 Resp 17 12/23/19 07:00 BP 135/82 12/23/19 07:00 Pulse Ox 95 12/23/19 07:00 Intake & Output 12/22/19 12/23/19 12/23/19 18:59 06:59 18:59 Intake Total 360 Balance 360 Weight 49.895 kg Intake: Oral 360 Other: Voiding Method Toilet # Voids 2 2 # Bowel Movements 1 - Exam GENERAL EXAM: Alert, active, 59-year-old female patient, on room air, with pulse ox of 96% comfortable in no apparent distress. Patient has been noted to make bizarre comments, has been evaluated by psychiatry HEAD: Normocephalic. EYES: Normal reaction of pupils, equal size. NOSE: Clear with pink turbinates. THROAT: Erythema no exudates. NECK: No masses, no JVD. CHEST: No chest wall deformity. LUNGS: Equal air entry with crackles in the left base. CVS: S1 and S2 normal with no audible murmur, regular rhythm. ABDOMEN: No hepatosplenomegaly, normal bowel sounds, no guarding or rigidity. SPINE: No scoliosis or deformity SKIN: No rashes CENTRAL NERVOUS SYSTEM: No focal deficits, tone is normal in all 4 extremities. EXTREMITIES: There is no peripheral edema. No clubbing, no cyanosis. Peripheral pulses are intact. - Labs CBC & Chem 7: 12/20/19 09:43 12/20/19 09:43 Labs: Abnormal Lab Results - Last 24 Hours (Table) 12/22/19 Range/Units 17:36 D-Dimer 1.31 H (<0.60) mg/L FEU Microbiology - Last 24 Hours (Table) 12/16/19 15:50 Blood Culture - Final Blood No Growth after 144 hours Assessment and Plan Plan: Assessment: 1 Febrile illness secondary to left lower lobe pneumonia, community-acquired. Influenza screen negative. CoVID screen negative, febrile pattern improved 2 Dyspnea secondary to acute left lower lobe pneumonia, improved 3 History of seasonal ALLERGIES. 4 History of gastroesophageal reflux disease 5 History of alcohol use 6 elevated d-dimer, CT chest showed no evidence of pulmonary embolism 7 acute psychosis possibly related to medications (steroids), psychiatric service is following, steroids have been discontinued, brain CT is negative Plan: Patient remains stable from pulmonary perspective however she has possibly acute psychosis, she is being followed by psychiatry who is adjusting her antipsyc hotic medications and recommendation was made to have the patient admitted to the inpatient mental health unit. She can follow up with Dr. Pop in the office in 7-10 days after she is discharged from the hospital. I performed a history & physical examination of the patient and discussed their management with my nurse practitioner, Doretha Paredes. I reviewed the nurse practitioner's note and agree with the documented findings and plan of care. Lung sounds are positive for diminished breath sounds. The findings and the impression was discussed with the patient. I attest to the documentation by the nurse practitioner. Time with Patient: Less than 30
[2019-12-23] MEDS ORDERED: ONDANSETRON 4 MG/2 ML VIAL IVP STA (14:07)
[2019-12-23] MEDS: AZITHROMYCIN 500 MG TAB PO SCH (14:14)
[2019-12-23 14:48] VITALS: BP 149/92; PULSE 83; TEMP 98
--- NOTE | 2019-12-23 17:47 | PN ---
PROGRESS NOTE DATE OF SERVICE: 12/22/2019 This 59-year-old woman who was admitted with pneumonia also had delirium and psychotic features. At this time the patient is being closely monitored. No chest pain. No palpitations. No fever. PHYSICAL EXAMINATION: Alert and oriented x3. Pulse 83, blood pressure 140/92, respiration 17, temperature 98 degrees, pulse ox 96% on room air. HEENT: Conjunctivae normal. NECK: No jugular venous distention. CARDIOVASCULAR SYSTEM: S1, S2 muffled. RESPIRATORY SYSTEM: Breath sounds diminished at the bases. No rhonchi. No crackles. ABDOMEN: Soft, non-tender. LEGS: No edema. No swelling. NERVOUS SYSTEM: No focal deficit. LABS: WBC 21.3. Other labs are noted. ASSESSMENT: 1. Acute left lower lobe pneumonia, possibly community-acquired, as well as left pleural effusion, improved. 2. Previous history of infection with mononucleosis with antibody positive for IgG antibody only. 3. Shortness of breath; possible reactive bronchospasm. 4. Confusion and change in mental status; possibly acute delirium, possibly medication- induced, possible steroid psychosis. 5. Increased white count. 6. Elevated inflammatory markers, including CRP, D-dimer. 7. Hyponatremia. 8. COVID-19 negative. 9. Increased random blood sugar. 10.Gastroesophageal reflux disease. 11.History of recent weight loss. 12.History of overactive bladder. 13.History of seasonal allergies. 14.Cholecystectomy. 15.Mild protein-calorie malnutrition; body mass index 19.4. 16.FULL CODE. RECOMMENDATIONS AND DISCUSSION: I recommend to continue current medications, continue with the monitoring, symptomatic treatment. I recommended continuing with the current antibiotics. Dr. Walker has recommended clearance from lung point of view for discharge. I would recommend psychiatric evaluation, infectious disease evaluation. I recommend close followup with Dr. Singleton regarding the above-mentioned medical issues in the outpatient setting. Discussed with Dr. Singleton. Further recommendations to follow. MMODL / IJN: [id number] /
[2019-12-23] MEDS ORDERED: OLANZapine 7.5 MG TAB PO SCH (21:00)
--- NOTE | 2019-12-24 06:44 | DS ---
DISCHARGE SUMMARY ADDENDUM: This 59-year-old woman was admitted with pneumonia and other multiple medical issues and also had delirium. The patient is apparently psychotic and Psychiatry saw the patient and recommended inpatient psychiatric admission at this time. The patient is COVID-19 negative. The patient has been followed with Dr. Singleton in the outpatient setting. Please refer to my previous dictation for list of medications and discharge diagnoses. On exam, vitals are stable. Cardiovascular S1 and S2. Abdomen is soft. Nervous system: No focal deficits. MMODL / IJN: [id number] /
== END 2019-12-23 15:46 | DRG 194 ==
LOC: EC 15:02 → 4SSUR 17:15 → 6PED 12-19 12:05 → 4SSUR 12-21 18:42
PROVIDERS: ADMIT Hospitalist; ATTEND Hospitalist
DX: J18.9 Pneumonia, unspecified organism (principal); Z68.1 Body mass index [BMI] 19.9 or less, adult; E44.1 Mild protein-calorie malnutrition; J91.8 Pleural effusion in other conditions classified elsewhere; E87.1 Hypo-osmolality and hyponatremia; F23 Brief psychotic disorder; Z20.828 Contact with and (suspected) exposure to other viral communicable diseases; F39 Unspecified mood [affective] disorder; J30.2 Other seasonal allergic rhinitis; N32.81 Overactive bladder; K21.9 Gastro-esophageal reflux disease without esophagitis; B27.90 Infectious mononucleosis, unspecified without complication; H66.91 Otitis media, unspecified, right ear; R00.0 Tachycardia, unspecified; R45.87 Impulsiveness; R79.89 Other specified abnormal findings of blood chemistry; J98.01 Acute bronchospasm; R91.1 Solitary pulmonary nodule; T38.0X5A Adverse effect of glucocorticoids and synthetic analogues, initial encounter; Z71.3 Dietary counseling and surveillance; Z56.0 Unemployment, unspecified; Z79.899 Other long term (current) drug therapy; Z90.49 Acquired absence of other specified parts of digestive tract; Z80.0 Family history of malignant neoplasm of digestive organs; Z82.49 Family history of ischemic heart disease and other diseases of the circulatory system
CPT/HCPCS: 36415; 70450; 71045; 71046; 71275; 80048; 80053; 81003; 83605; 83615; 84145; 85025; 85379; 85652; 86140; 86308; 86663; 86664; 86665; 87040; 87081; 87430; 87502; 96361; 96365; 96375; 99285

== ENCOUNTER 2019-12-23 16:00 | Inpatient (IN) | payer OTHER ==
[2019-12-23] MEDS ORDERED: MAGNESIUM HYDROXIDE 2,400 MG/10 ML CUP PO PRN (16:29)
[2019-12-23] MEDS ORDERED: MAG HYDROX/AL HYDROX/SIMETH 30 ML CUP PO PRN (16:29)
[2019-12-23] MEDS ORDERED: ZIPRASIDONE 20 MG VIAL IM PRN (16:34)
[2019-12-23] MEDS: CEFDINIR 300 MG CAP PO SCH (20:38)
[2019-12-23] MEDS: FLUTICASONE 50MCG/SPRAY NASAL 16GM EA NOSTRIL SCH (20:38)
[2019-12-23] MEDS: OLANZapine 5 MG TAB PO SCH (20:38)
[2019-12-24] MEDS: metroNIDAZOLE 500 MG TAB PO SCH ×3 (02:52→15:40)
[2019-12-24 06:24] LABS: Cholesterol 164 mg/dL (<200); HDL Cholesterol 33 mg/dL (40-60); LDL Cholesterol,Calculated 91 mg/dL (0-99); Triglycerides 199 mg/dL (<150)
[2019-12-24] MEDS: CEFDINIR 300 MG CAP PO SCH ×2 (08:22→21:14)
[2019-12-24] MEDS: AZITHROMYCIN 500 MG TAB PO SCH (08:22)
[2019-12-24] MEDS: LORATADINE 10 MG TAB PO SCH (08:22)
[2019-12-24] MEDS: OLANZapine 2.5 MG TAB PO SCH (08:22)
[2019-12-24] MEDS: FLUTICASONE 50MCG/SPRAY NASAL 16GM EA NOSTRIL SCH ×2 (08:22→21:14)
[2019-12-24] MEDS: MULTIVITAMINS, THERA 1 EACH TAB PO SCH (12:44)
[2019-12-24] MEDS: FOLIC ACID 1 MG TAB PO SCH (12:45)
[2019-12-24] MEDS: THIAMINE 100 MG TAB PO SCH (12:45)
[2019-12-24 13:29] LABS: Hemoglobin A1C 5.8 % (4.0-6.0)
--- NOTE | 2019-12-24 18:22 | CONS ---
CONSULTATION DATE OF SERVICE: 12/24/2019 REASON FOR CONSULTATION: Advice regarding history of recent pneumonia and other medical issues requested by Psychiatry. HISTORY OF PRESENT ILLNESS: This 59-year-old woman with a past medical history of GERD, overactive bladder, cholecystectomy, colonoscopy, being followed by Dr. Singleton in the outpatient setting was recently admitted with acute left lower pneumonia. The patient was treated with antibiotics. Patient improved significantly. Patient had an episode of psychotic episode. The patient had steroids given which was stopped. The patient also had recent weight loss, being evaluated by Dr. Singleton in the outpatient setting. Otherwise, currently the patient is transferred to inpatient psych for further evaluation and treatment. The most recent chest x-ray showed significant clearing. There is no history of fever, rigors. No history of headache, loss of consciousness, seizures at this time. PAST MEDICAL HISTORY: History of GERD, history of overactive bladder, history of cholecystectomy, colonoscopy. MEDICATIONS: 1. Flagyl 500 mg q.8 p.r.n. 2. Robitussin DM. 3. Thiamine 100 mg. 4. Omeprazole 20 mg. 5. Zyprexa 2.5 mg q.h.s. and 2.5 mg p.o. daily. 6. Multivitamins. 7. Claritin 10 mg daily. 8. Folic acid 1 mg daily. 9. Flonase 2 sprays b.i.d. 10.Ceftin 500 mg p.o. b.i.d. 11.Zithromax 500 mg p.o. daily. 12.Tylenol 1000 mg q.6 p.r.n. ALLERGIES: None. FAMILY HISTORY: Family history of colon cancer in the family. SOCIAL HISTORY: Occasional alcohol intake. No smoking. REVIEW OF SYSTEMS: ENT: No diminished vision. No diminished hearing. CARDIOVASCULAR: No angina or palpitations. RESPIRATORY: As mentioned earlier. GI: No nausea or vomiting. : No dysuria. NERVOUS SYSTEM: No numbness or weakness. ALLERGY/IMMUNOLOGY: No asthma or hayfever. MUSCULOSKELETAL as mentioned earlier. HEMATOLOGY/ONCOLOGY: No history of anemia. ENDOCRINE: No history of diabetes or hypothyroidism. CONSTITUTIONAL: As mentioned earlier. DERMATOLOGY: Negative. RHEUMATOLOGY negative. PSYCHIATRY as mentioned earlier. PHYSICAL EXAMINATION: Alert and oriented times three. Pulse 72, blood pressure 133/61, respiration 16, temperature 98 degrees, pulse ox 98% on room air. HEENT: Conjunctivae normal. Oral mucosa moist. NECK is no jugular venous distention. No carotid bruit. No lymph node enlargement. CARDIOVASCULAR systems: S1, S2 muffled. RESPIRATION: Breath sounds diminished in the bases. A few scattered rhonchi. No crackles. ABDOMEN: Soft, nontender. No mass palpable. LEGS: No edema. No swelling. NERVOUS SYSTEM: Higher functions as mentioned. Cranial nerves 2 thru 12 grossly intact. No focal motor or sensory deficits. LYMPHATICS: No lymph nodes palpable in the neck, axillae or groin. SKIN: No ulcer, rash, bleeding. JOINTS: No active deforming arthropathy. LABORATORY DATA: The labs are triglycerides 199. Otherwise, most recent labs WBC 21.3, platelets 644. Other labs are noted. ASSESSMENT: 1. Recent left lower pneumonia possibly community-acquired left pleural effusion, improved. 2. Previous history of infectious mononucleosis antibody positive for IgG antibodies only. No acute active infection. 3. Shortness of breath possibly reactive bronchospasm. 4. Confusion and change in mental status possible acute delirium, possibly medication induced, possible acute psychosis. 5. Increased WBC. 6. Elevated inflammatory markers including CRP, D-dimer for outpatient followup. 7. Hyponatremia. 8. History of Covid-19 negative. 9. Increased random blood sugar. 10.History of weight loss. 11.Gastroesophageal reflux disease. 12.History of overactive bladder. 13.History of seasonal allergies. 14.Cholecystectomy. 15.Mild protein-calorie malnutrition. Body mass index 19.4. 16.FULL CODE. RECOMMENDATIONS AND DISCUSSION: I recommend to continue current medication, continue to monitor. Symptomatic treatment. Otherwise, at this time, I recommend at this time, resume the home medications. Complete a course of p.o. antibiotics. Other than that, we will follow the patient closely with you. Infectious disease evaluation also may be sought which was ordered before. Otherwise, we will follow the patient closely with you. DVT prophylaxis and the patient may be asked to follow up with Dr. Singleton closely after discharge. I would recommend repeat labs also. Thank you Dr. Cruz for letting us participate in the care of this patient. MMODL / IJN: [id number] /
[2019-12-24] MEDS: OLANZapine 5 MG TAB PO SCH (21:14)
--- NOTE | 2019-12-24 22:07 | HP ---
HISTORY AND PHYSICAL DATE OF SERVICE: 12/24/2019 IDENTIFYING DATA: The patient is a 59-year-old female. She lives with her . She was admitted in transfer from the medical floor. CHIEF COMPLAINT: The patient was confused and disoriented. She had some episodes of vegetation and strange behavior, possibly related to steroid use. HISTORY OF PRESENTING ILLNESS: I refer the reader to Dr. Franco consultation note of 12/20/2019 for details. When I interviewed the patient, she was only able to provide very minimal information stating that she was too weak to stay in the interview. She also stated that she felt she was afraid she would get nauseous. In regard to the events leading up to her hospitalization and issues during her medical admission, the patient was not able to provide much for details. She understood she had some kind of infection. She acknowledged that she had strange behavior. She gave some conflicting information about what she had been going through. The patient denied a past history of any mental health issues. She stated that she did not believe she had been on any psychotropic medications in the past. She reported no prior psychiatric hospitalizations. Current psychotropic medications include Zyprexa 2.5 mg in the morning, 5 mg at bedtime. She is admitted for further evaluation. SUBSTANCE USE HISTORY: None reported. PAST MEDICAL HISTORY: As per medical documentation of Dr. Vargas. FAMILY AND SOCIAL HISTORY: Please refer to Dr. Franco consultation note. MENTAL STATUS EXAM: Patient walked very slowly coming down the fung. She was assisted some of the way by Nursing. She was able to walk into the office and sat in a chair on her own. She sat in a slumped posture. Eye contact was fair to poor. At times, she had her eyes almost closed. She was somewhat restless as she sat. She answered questions with only 1 or 2 word responses at best. She spoke in a soft airy voice. Her affect was flat, had a very a withdrawn manner. It was difficult to assess for mood or thought issues. She appeared moderately distressed. She indicated no thoughts of harm. On cognitive exam, patient thought it was Thursday and acknowledged that she may have lost today. She was able to say she believed it was December 23, 2019. She could tell me the president. She was able to state she was at "[facility]." She did not make an effort to answer any other formal cognitive questions. PHYSICAL EXAM: As per Dr. Vargas. ASSESSMENT: This 59-year-old female is diagnosed with a recent history of delirium. She has been clearing. It does appear that she may have had some manic symptoms, possibly related to steroid use. Her main complaint currently is weakness, which appears to relate to recovering from her delirium and pneumonia. STRENGTHS: Include that she is oriented and aware of circumstances. WEAKNESSES: Include her complaint of weakness. DIAGNOSES: 1. 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 2. Status post delirium. 3. Acute left lower lobe pneumonia with possible left pleural effusion. RECOMMENDATIONS: Patient will be admitted for comprehensive medical psychiatric and psychosocial evaluation. We will engage the patient in individual and group therapeutic activities. I will continue the patient on Zyprexa 2.5 mg in the morning, 5 mg in the evening. At this point, I was not able to engage the patient in any relevant discussion of diagnostics or treatment issues. We will mainly continue observation and look for clearing of some of her physical symptoms that may relate to her medical complications. We will focus on stabilization and discharge planning. MMODL / IJN: [id number] /
[2019-12-25] MEDS: metroNIDAZOLE 500 MG TAB PO SCH ×4 (00:01→20:12)
[2019-12-25] MEDS: FLUTICASONE 50MCG/SPRAY NASAL 16GM EA NOSTRIL SCH ×2 (09:18→20:12)
[2019-12-25] MEDS: OLANZapine 2.5 MG TAB PO SCH (09:19)
[2019-12-25] MEDS: LORATADINE 10 MG TAB PO SCH (09:19)
[2019-12-25] MEDS: CEFDINIR 300 MG CAP PO SCH ×2 (09:23→20:12)
[2019-12-25] MEDS: AZITHROMYCIN 500 MG TAB PO SCH (09:23)
[2019-12-25 09:33] LABS: Albumin 4.2 g/dL (3.5-5.0); Basophils # (A) 0.1 k/uL (0-0.2); Basophils % (A) 0 %; C Reactive Protein 74.1 mg/L (<10.0); Calcium 9.4 mg/dL (8.4-10.2); Eosinophils # (A) 0.1 k/uL (0-0.7); Eosinophils % (A) 0 %; HCT 41.3 % (34.0-46.0); Lymphocytes # (A) 1.7 k/uL (1.0-4.8); Lymphocytes % (A) 8 %; MCH 29.2 pg (25.0-35.0); MCHC 31.6 g/dL (31.0-37.0); MCV 92.4 fL (80.0-100.0); Mean Platelet Volume 6.6; Monocytes # (A) 0.9 k/uL (0-1.0); Monocytes % (A) 4 %; Neutrophils # (A) 18.9 k/uL (1.3-7.7); Neutrophils % (A) 87 %; Platelet Count 526 k/uL (150-450); Potassium 4.9 mmol/L (3.5-5.1); RBC 4.47 m/uL (3.80-5.40); RDW 12.6 % (11.5-15.5); Total Bilirubin 0.9 mg/dL (0.2-1.3); Total Protein 7.2 g/dL (6.3-8.2); WBC 21.8 k/uL (3.8-10.6)
[2019-12-25] MEDS: MULTIVITAMINS, THERA 1 EACH TAB PO SCH (12:52)
[2019-12-25] MEDS: FOLIC ACID 1 MG TAB PO SCH (12:52)
[2019-12-25] MEDS: THIAMINE 100 MG TAB PO SCH (12:52)
[2019-12-25] MEDS ORDERED: OLANZapine 5 MG TAB PO ONE (13:05)
--- NOTE | 2019-12-25 16:09 | PN ---
PROGRESS NOTE DATE OF SERVICE: 12/25/2019 CHIEF COMPLAINT: The patient was confused and disoriented. She had some episodes of agitation and strange behavior, possibly related to steroid use. INTERVAL HISTORY: Patient has been doing fair. She has had ups and downs in her functioning. She had a quiet day yesterday. She spent a fair amount of time in bed. When I saw her yesterday her main complaint was weakness where she could barely walk without support and that she was not able to even stay within the interview for short period of time because she felt too weak and felt that she would get nauseous. She slept fair last night. Today she has been up. She has significant fluctuations in her functioning. She has periods where she will lay in bed. She will be fairly calm, staff say that they can talk to her and she will interact appropriately. She then has periods where she is walking around the unit in a very rapid manner. She will talk with pressured speech and flight of ideas. Her thoughts at times seem disjointed. She will have a very intense manner. When I talked to the patient she presented with the pressured speech. She was quite labile in mood and went from she seemed very distressed to the point of crying, then she could recover just as quickly and be in a calm mood where she was thankful about seemingly mundane things. She tolerates her psychotropic medications. MENTAL STATUS: Patient was intense in her manner. She had psychomotor restlessness. She had flight of ideas, pressured speech, loose association and tangential thinking. Her affect was intense. Her mood very labile, going from crying and tearfulness to a more calm mood. She did not clearly show any mood elevation. She appeared moderately distressed. It was difficult to assess for thought disorder or thoughts of harm. She seemed oriented and alert. ASSESSMENT: I will continue the current diagnosis of mood disorder, though she does appear to be showing indications for bipolar disorder with rapid cycling. I reviewed medication issues with the patient. At this point, I will increase the patient's Zyprexa to 5 mg 3 times a day as her only psychotropic medication. I briefly reviewed her medications though the patient was not able to follow the conversation very well. We will continue to focus on stabilization and discharge planning. MMODL / SHEFALIN: [id number] /
[2019-12-25] MEDS: OLANZapine 5 MG TAB PO SCH ×2 (16:49→21:52)
[2019-12-26] MEDS: metroNIDAZOLE 500 MG TAB PO SCH ×3 (00:49→14:59)
--- NOTE | 2019-12-26 09:43 | P.PN ---
Progress Note - Text Progress Note Date: 12/26/19 Interval History: Patient was seen sitting in her room on the side of her bed and was directable and agreeable to speak with comic book writer in the office. Patient appeared to be wide awake this morning and hyperverbal, she appeared to be impulsive and ask at times inappropriate questions. She wanted to bring her coloring book and several other documents with her to the comic book writer's office. Patient was tangential/circumstantial and displayed a significant flight of ideas today. She claims that she feels "a bit better" with regards to her fluctuations in mood however states that last night she became upset as she was not able to get anybody's attention. She claims that she hit the wall several times with her hand to seek attention. She claims that she was able to get about 2 hours of sleep last night. She states that she is going to some groups and is continuing to agreeable to take medications. Station Worker discussed the side effects and benefits of Depakote or another mood stabilizer and patient agreed to take the medication. She claims having a fair appetite. At this time patient denies any suicidal or homical ideations, intent or plan. Patient denies any auditory, visual hallucinations and denies any paranoia or delusions. Patient denies any side effects from the medications and has been compliant with meds. Mental Status Exam: General Appearance: Patient appears to be within, stated age is alert, intrusive and difficult to redirect at times. Wearing hospital gown. Intense stare. Behavior: Patient is calmly seated without any agitated behavior. Intrusive at times. Speech: Patient's speech is fluent and nonpressured. Mood/Affect: Mood is improving mildly however continues to be labile, affect is congruent Suicidality/Homicidality: Patient denies having any suicidal or homicidal ideation intent or plan. Perceptions: Patient denies any visual hallucinations and denies any auditory hallucinations Though content/process: Patient is tangential/circumstantial, rambles at times. Inappropriate. Memory and concentration: AOX3, grossly intact for the purposes of this session Judgment and insight: Improving mildly Assessment Mood disorder likely secondary to medications i.e. steroids. Plan: -Patient continues to meet criteria for inpatient psychiatric admission for symptom stabilization and safety. Patient has signed adult voluntary form and medication consent and was placed in patient's chart. -Medications: Continue with Zyprexa 5 mg 3 times a day for mood stabilization/psychosis. Patient is agreeable to take a low dose of Depakene 150 mg twice a day for mood stabilization. -When necessary Ativan and Geodon for agitation/aggression. -NRT -not needed as patient does not smoke. -SW on board for discharge planning. Encouraged the patient to participate in milieu. We'll continue to treat patient for severe psychiatric symptoms and continue to work towards discharge.
[2019-12-26] MEDS: AZITHROMYCIN 500 MG TAB PO SCH (09:52)
[2019-12-26] MEDS: CEFDINIR 300 MG CAP PO SCH (09:53)
[2019-12-26] MEDS: LORATADINE 10 MG TAB PO SCH (09:53)
[2019-12-26] MEDS: FLUTICASONE 50MCG/SPRAY NASAL 16GM EA NOSTRIL SCH (09:53)
[2019-12-26] MEDS: OLANZapine 5 MG TAB PO SCH ×2 (09:53→14:59)
[2019-12-26] MEDS: VALPROIC ACID ORAL SOLN 250 MG/5 ML CUP PO SCH (09:55)
[2019-12-26 10:51] LABS: African American GFR (CKD) >90 (>60 ml/min/1.73 sqM); Anion Gap 10 mmol/L; Blood Urea Nitrogen 23 mg/dL (7-17); Calcium 9.2 mg/dL (8.4-10.2); Carbon Dioxide 28 mmol/L (22-30); Chloride 93 mmol/L (98-107); Glucose 116 mg/dL (74-99); Non-African American GFR(CKD) 84 (>60 ml/min/1.73 sqM); Potassium 4.8 mmol/L (3.5-5.1); Sodium 131 mmol/L (137-145)
[2019-12-26] MEDS: FOLIC ACID 1 MG TAB PO SCH (11:53)
[2019-12-26] MEDS: MULTIVITAMINS, THERA 1 EACH TAB PO SCH (11:53)
[2019-12-26] MEDS: THIAMINE 100 MG TAB PO SCH (11:53)
[2019-12-27] MEDS: metroNIDAZOLE 500 MG TAB PO SCH ×4 (00:32→20:16)
[2019-12-27 07:31] LABS: Basophils # (A) 0.1 k/uL (0-0.2); Basophils % (A) 1 %; Eosinophils # (A) 0.1 k/uL (0-0.7); Eosinophils % (A) 1 %; HCT 37.3 % (34.0-46.0); HGB 11.9 gm/dL (11.4-16.0); Lymphocytes # (A) 2.6 k/uL (1.0-4.8); Lymphocytes % (A) 30 %; MCH 29.7 pg (25.0-35.0); MCHC 31.9 g/dL (31.0-37.0); MCV 92.9 fL (80.0-100.0); Mean Platelet Volume 6.7; Monocytes # (A) 0.8 k/uL (0-1.0); Monocytes % (A) 9 %; Neutrophils # (A) 4.9 k/uL (1.3-7.7); Neutrophils % (A) 57 %; Platelet Count 426 k/uL (150-450); RBC 4.01 m/uL (3.80-5.40); RDW 12.6 % (11.5-15.5); WBC 8.6 k/uL (3.8-10.6)
[2019-12-27 07:45] LABS: African American GFR (CKD) >90 (>60 ml/min/1.73 sqM); Anion Gap 9 mmol/L; Blood Urea Nitrogen 17 mg/dL (7-17); Carbon Dioxide 26 mmol/L (22-30); Chloride 98 mmol/L (98-107); Glucose 93 mg/dL (74-99); Non-African American GFR(CKD) 85 (>60 ml/min/1.73 sqM); Sodium 133 mmol/L (137-145)
[2019-12-27] MEDS: FLUTICASONE 50MCG/SPRAY NASAL 16GM EA NOSTRIL SCH ×3 (08:47→20:16)
[2019-12-27] MEDS: VALPROIC ACID ORAL SOLN 250 MG/5 ML CUP PO SCH ×3 (08:47→20:15)
[2019-12-27] MEDS: CEFDINIR 300 MG CAP PO SCH ×3 (08:47→20:16)
[2019-12-27] MEDS: OLANZapine 5 MG TAB PO SCH ×2 (08:48→09:19)
[2019-12-27] MEDS: LORATADINE 10 MG TAB PO SCH (09:19)
[2019-12-27] MEDS: AZITHROMYCIN 500 MG TAB PO SCH (09:19)
[2019-12-27] MEDS ORDERED: OLANZapine 2.5 MG TAB PO ONE (10:38)
--- NOTE | 2019-12-27 11:28 | P.PN ---
Progress Note - Text Progress Note Date: 12/27/19 Interval History: Patient was seen sitting in her room on the side of her bed and was directable and agreeable to speak with process description writer in the office. Patient appeared to be wide awake this morning. Patient continues to be hyperverbal and also appeared to be impulsive during the interview. Patient repeatedly asked process description writer to make sure nobody was around him for privacy. She asked process description writer to close the door of the lounge across from her room because she believed others were going to hear her. She continues to ask at times inappropriate questions. She had several different coloring books and papers with drawings on them beside her and when asked to explain what she was writing patient was tangential about her answer and was unable to focus on the conversation. She claims that she feels that she is making progress and feels "a bit better" with regards to her fluctuations in mood. She claims that she was able to get about 2-3 hours of sleep last night. She claims having a fair appetite. At this time patient denies any suicidal or homical ideations, intent or plan. Patient denies any auditory, visual hallucinations and denies any paranoia or delusions. Patient denies any side effects from the medications and has been compliant with meds. Mental Status Exam: General Appearance: Patient appears to be within, stated age is alert, intrusive and difficult to redirect at times. Wearing hospital gown. Intense stare. Behavior: Patient is calmly seated without any agitated behavior. Intrusive at times, improving mildly Speech: Patient's speech is fluent and nonpressured. Mood/Affect: Mood is improving mildly however continues to be labile, affect is congruent Suicidality/Homicidality: Patient denies having any suicidal or homicidal ideation intent or plan. Perceptions: Patient denies any visual hallucinations and denies any auditory hallucinations Though content/process: Patient is tangential/circumstantial, rambles at times. Inappropriate. Memory and concentration: AOX3, grossly intact for the purposes of this session. Attention span improving mildly. Judgment and insight: Improving mildly Assessment: Mood disorder likely secondary to medications i.e. steroids. Plan: -Patient continues to meet criteria for inpatient psychiatric admission for symptom stabilization and safety. Patient has signed adult voluntary form and medication consent and was placed in patient's chart. -Medications: Increased Zyprexa 7.5 mg twice a day for mood stabilization/psychosis. Increased Depakene 200 mg twice a day for mood stabilization. -When necessary Ativan and Geodon for agitation/aggression. -NRT -not needed as patient does not smoke. -SW on board for discharge planning. Encouraged the patient to participate in milieu. We'll continue to treat patient for severe psychiatric symptoms and continue to work towards discharge.
[2019-12-27] MEDS: THIAMINE 100 MG TAB PO SCH (11:43)
[2019-12-27] MEDS: FOLIC ACID 1 MG TAB PO SCH (11:43)
[2019-12-27] MEDS: MULTIVITAMINS, THERA 1 EACH TAB PO SCH (11:43)
[2019-12-27 14:47] LABS: C-ANCA <1:20 Titer (<1:20)
[2019-12-27] MEDS ORDERED: OLANZapine 7.5 MG TAB PO SCH (21:00)
[2019-12-28] MEDS: ACETAMINOPHEN TAB 325 MG TAB PO PRN (01:11)
[2019-12-28] MEDS: FLUTICASONE 50MCG/SPRAY NASAL 16GM EA NOSTRIL SCH ×2 (08:57→21:27)
[2019-12-28] MEDS: CEFDINIR 300 MG CAP PO SCH (08:58)
[2019-12-28] MEDS: LORATADINE 10 MG TAB PO SCH (08:58)
[2019-12-28] MEDS: AZITHROMYCIN 500 MG TAB PO SCH (08:58)
[2019-12-28] MEDS: metroNIDAZOLE 500 MG TAB PO SCH (08:58)
[2019-12-28] MEDS: VALPROIC ACID ORAL SOLN 250 MG/5 ML CUP PO SCH ×2 (08:59→21:29)
[2019-12-28] MEDS ORDERED: OLANZapine 7.5 MG TAB PO SCH (09:00)
--- NOTE | 2019-12-28 10:17 | P.PN ---
Progress Note - Text Progress Note Date: 12/28/19 Interval History: Patient was seen sitting in her room on the side of her bed and was directable and agreeable to speak with designer/writer in the office. Patient appeared to be wide awake this morning and appeared to be visibly upset and tearful. Patient continues to be hypervigilant about her privacy on the unit and believes that other patients are listening to her and her complaints. Patient continues to be hyperverbal and difficult to redirect during the interview. Patient did not ask inappropriate questions today however rambled significantly during the interview. She spoke about multiple complaints on the unit including the shower "is not very nice" and also spoke about not being able to eat her meals. She also spoke about having diarrhea and being on several antibiotics. She states that she is not able to sleep last night due to staff members and other patients opening her door. She claims that she feels that she is making progress and feels "better" with regards to her fluctuations in mood however patient visibly was tearful at times and appeared to be unstable. She claims that she was able to get about 2-3 hours of sleep last night. She claims having a fair appetite. At this time patient denies any suicidal or homical ideations, intent or plan. Patient denies any auditory, visual hallucinations. Patient denies any side effects from the medications and has been compliant with meds. Patient states that her daughter and her will come to visit her today. Mental Status Exam: General Appearance: Patient appears to be within, stated age is alert, intrusive and difficult to redirect at times. Wearing hospital gown. Intense stare. Behavior: Patient is calmly seated without any agitated behavior. Intrusive at times Speech: Patient's speech is fluent and nonpressured. Mood/Affect: Mood is improving mildly however continues to be labile, affect is congruent and tearful today. Suicidality/Homicidality: Patient denies having any suicidal or homicidal ideation intent or plan. Perceptions: Patient denies any visual hallucinations and denies any auditory hallucinations Though content/process: Patient is tangential/circumstantial, rambles at times. Inappropriate. Concerned with her privacy. Memory and concentration: AOX3, grossly intact for the purposes of this session. Attention span improving mildly. Judgment and insight: Improving mildly Assessment: Mood disorder likely secondary to medications i.e. steroids. Plan: -Patient continues to meet criteria for inpatient psychiatric admission for symptom stabilization and safety. Patient has signed adult voluntary form and medication consent and was placed in patient's chart. -Medications: Discontinued Zyprexa due to ineffectiveness. Continue with Depakene 200 mg twice a day for mood stabilization. Patient is agreeable to start Risperdal 1 mg twice a day starting tonight for mood st abilization/psychosis. Plan will be to increase gradually if tolerated to control symptoms and if this medication fails as well then we'll need to switch to first-generation antipsychotic. -When necessary Ativan and Geodon for agitation/aggression. -NRT -not needed as patient does not smoke. -SW on board for discharge planning. Encouraged the patient to participate in milieu. We'll continue to treat patient for severe psychiatric symptoms and continue to work towards discharge.
[2019-12-28] MEDS: THIAMINE 100 MG TAB PO SCH (12:25)
[2019-12-28] MEDS: FOLIC ACID 1 MG TAB PO SCH (12:26)
[2019-12-28] MEDS: MULTIVITAMINS, THERA 1 EACH TAB PO SCH (12:26)
[2019-12-28] MEDS: risperiDONE ODT 1 MG TAB PO SCH (21:28)
[2019-12-29] MEDS: FLUTICASONE 50MCG/SPRAY NASAL 16GM EA NOSTRIL SCH ×2 (09:27→21:10)
[2019-12-29] MEDS: VALPROIC ACID ORAL SOLN 250 MG/5 ML CUP PO SCH ×3 (09:28→21:14)
[2019-12-29] MEDS: LORATADINE 10 MG TAB PO SCH (09:28)
[2019-12-29] MEDS: risperiDONE ODT 1 MG TAB PO SCH ×3 (09:28→21:11)
[2019-12-29] MEDS: FOLIC ACID 1 MG TAB PO SCH (12:56)
[2019-12-29] MEDS: MULTIVITAMINS, THERA 1 EACH TAB PO SCH (12:56)
[2019-12-29] MEDS: THIAMINE 100 MG TAB PO SCH (12:56)
[2019-12-29] MEDS: ACETAMINOPHEN TAB 325 MG TAB PO PRN ×2 (14:21→21:14)
--- NOTE | 2019-12-29 14:27 | PN ---
PROGRESS NOTE DATE OF SERVICE: 12/29/2019 CHIEF COMPLAINT: The patient was confused and disoriented. She had some episodes of agitation and strange behavior, possibly related to steroid use. INTERVAL HISTORY: Patient has been doing fair. She continues to show significant manic symptoms along with some degree of thought disorder. She had a quiet day yesterday. She told me she attends groups so she did not attend any groups yesterday. She wonders about. She will make random comments to people. It is not clear. She really interact much with others. She tends to be intense, her mood fluctuates, at times she can be euphoric and other times tearful. Her mood can change on a dime. She indicates that she slept about 4 hours last night, today she has been up she is doing the same. She has not been attending groups. He wonders about. She will interact with staff, though much of the time her thoughts are disorganized and disjointed. When I saw her, she was not able to provide very clear information about her situation. The best she was able to get out is that she slept 2 hours last night, earlier in the night and then apparently another 2 hours later in the night, she could not really say much more than that. She did not have any specific complaint or concern. She made random comments about discharge. She asked a few questions about her medications. She appears to tolerate her medications. MENTAL STATUS: Patient sat with some restlessness. She gave fairly good eye contact. She answered questions with brief responses. She showed some pressured speech and flight of ideas. She responded to some questions appropriately, though others, she was tangential and at times disorganized in thoughts. She made random comments along the way. Her affect was intense, her mood for the most part was euphoric, though she had 1 period where she seemed to be in the verge of tears and then turned around to be excessively complimentary and upbeat. There seemed to be some underlying sense of significant distress. She voiced some thoughts suggestive of paranoid thinking. There was no overt response to internal stimuli. She voiced no thoughts of harm to self or others. She was oriented and alert. ASSESSMENT: I will continue the current diagnosis. Patient continues to show significant manic symptoms. She had been on Zyprexa which was discontinued, though she was likely on a subtherapeutic dose and was not given a full trial Zyprexa. Currently, she is on 1 mg of Risperdal twice a day, which very likely is subtherapeutic, same for her Depakote at 200 mg twice a day. I will increase her Depakote to 750 mg twice a day and will get a Depakote level Thursday morning. I would aim for a blood level in the mid therapeutic range or higher, given her the persistence of manic symptoms. I will increase Risperdal to 3 mg twice a day. I discussed medications with the patient, though kept the conversation somewhat limited because the patient really was not able to follow the conversation very well. There was a question early on in her hospitalization of delirium, though for the most part that seems to be resolved. Whether or not her manic symptoms related to steroid use remains to be seen, we will focus on stabilization and discharge planning. RADHA / BARBARA: [id number] /
[2019-12-30] MEDS: FLUTICASONE 50MCG/SPRAY NASAL 16GM EA NOSTRIL SCH ×2 (09:05→20:18)
[2019-12-30] MEDS: risperiDONE ODT 1 MG TAB PO SCH ×2 (09:06→21:05)
[2019-12-30] MEDS: LORATADINE 10 MG TAB PO SCH (09:06)
[2019-12-30] MEDS: VALPROIC ACID ORAL SOLN 250 MG/5 ML CUP PO SCH ×2 (09:07→21:04)
--- NOTE | 2019-12-30 12:49 | PN ---
PROGRESS NOTE DATE OF SERVICE: 12/30/2019 CHIEF COMPLAINT: The patient was confused and disoriented. She had some episode of agitation and strange behavior, possibly related to steroid use. INTERVAL HISTORY: Patient has been doing fair. She continues to show a moderate degree of manic symptom. She seemed to be in her usual state yesterday. There were ups and downs in her mood. I would refer the reader to the group note of 12 noon to compare with the group note of 1430. In the first group she did quite well and seemed to be showing a more stable mood. In the afternoon group, things went downhill for her. She has periods where she gets disorganized in her thoughts. She shows mood swings from being euphoric to tearful. She has been cooperative with care. She said she slept well last night, today she has been up. She comes out in the day area. It is noted that one point I saw her in her room. She had many items spread around her bed and table, it was difficult to be clear what she seemed to be focused on. She responded appropriately to questions. Her only complaints when I talked to her were some nausea and wanting a throat lozenge. Other than that, she seemed to have a fairly good outlook and was upbeat. She tolerates her psychotropic medications. MENTAL STATUS: Patient gave fairly good eye contact, she was restless. She answered questions with brief responses, for the most part her thoughts were clear. She was a little tangential in some of what she talked about. Her affect was in a reasonable range. Her mood was [id number] euphoric. She did not appear to be distressed when I talked to her. She did not go into any crying episodes. There was no indication of thought disorder. She voiced no thoughts of harm. Cognition was clear. ASSESSMENT: I will continue the current diagnosis and treatment plan. I have increased both her Depakote and Risperdal. She has been consistently showing manic and mixed symptoms to a significant degree. My assessment is that she was needing more sort of dosing of medications to begin to curb some of her manic symptoms. She does not seem to be showing any residual signs of delirium, which may have been part of her medical admission. She currently is on Depakote 750 mg twice a day and Risperdal 3 mg twice a day. She will get a valproic acid level in the morning. We will focus on stabilization and discharge planning. MMODL / IJN: [id number] /
[2019-12-30] MEDS: THIAMINE 100 MG TAB PO SCH (12:51)
[2019-12-30] MEDS: FOLIC ACID 1 MG TAB PO SCH (12:51)
[2019-12-30] MEDS: MULTIVITAMINS, THERA 1 EACH TAB PO SCH (12:51)
[2019-12-31] MEDS: FLUTICASONE 50MCG/SPRAY NASAL 16GM EA NOSTRIL SCH ×2 (08:03→20:53)
[2019-12-31] MEDS: risperiDONE ODT 1 MG TAB PO SCH (08:06)
[2019-12-31] MEDS: LORATADINE 10 MG TAB PO SCH (08:06)
[2019-12-31] MEDS: VALPROIC ACID ORAL SOLN 250 MG/5 ML CUP PO SCH ×2 (08:07→20:53)
--- NOTE | 2019-12-31 10:00 | P.PN ---
Progress Note - Text Progress Note Date: 12/31/19 Interval history: Patient was seen resting in bed and was directable and agreeable to speak with contract technical writer. Patient reports that she has been able to sleep much more than before. She is reporting that her racing thoughts have been "90% better." Currently she is not endorsing any significant symptoms of depression. At this time patient denies any suicidal or homicidal ideations intent or plan. Denies any Auditory or visual hallucinations. Patient is reporting multiple somatic problems at this time. She is reporting nausea, diarrhea, and dry mouth. She denies any chest pain. She is attributing this to her medications. She does make some intrusive statements asking the cleaning person to "blow a kiss" to this provider. Mental status exam: General Appearance: Patient appears to be stated age is alert, directable, and cooperative. Patient is resting in bed comfortably dressed in hospital gown. Behavior: No agitated behavior. Patient is calm and directable. Eye contact is intermittent. Psychomotor activity appears normal. Speech: Patient's speech is fluent and nonpressured. Mood/Affect: Mood is nauseous, affect is congruent, somewhat malaised and with appropriate range. Suicidality/Homicidality: Patient denies having any suicidal or homicidal ideat ion intent or plan. Perceptions: Patient denies any auditory or visual hallucinations. Though content/process: There is no evidence of any delusional thought content and thought process is linear and goal-directed. Memory and concentration: AOX3, grossly intact for the purposes of this session Judgment and insight: improving mildly Assessment/Plan: Continue with current diagnosis. Patient continues to meet criteria for inpatient psychiatric admission for symptom stabilization and safety. We will decrease Risperdal to 2 mg by mouth twice a day due to possible side effects of medications. We will continue her Depakote at current dose. Depakote level to be drawn today. Monitor for medication compliance and for any psychotropic medication side effects. Will continue to monitor ongoing response to treatment. Encouraged participation in milieu.
[2019-12-31] MEDS: FOLIC ACID 1 MG TAB PO SCH (12:18)
[2019-12-31] MEDS: THIAMINE 100 MG TAB PO SCH (12:18)
[2019-12-31] MEDS: MULTIVITAMINS, THERA 1 EACH TAB PO SCH (12:18)
[2019-12-31] MEDS: risperiDONE ODT 2 MG TAB PO SCH (20:55)
[2020-01-01] MEDS: FLUTICASONE 50MCG/SPRAY NASAL 16GM EA NOSTRIL SCH ×2 (09:23→20:53)
[2020-01-01] MEDS: LORATADINE 10 MG TAB PO SCH (09:24)
[2020-01-01] MEDS: risperiDONE ODT 2 MG TAB PO SCH ×2 (09:24→20:55)
[2020-01-01] MEDS: VALPROIC ACID ORAL SOLN 250 MG/5 ML CUP PO SCH ×2 (09:24→20:54)
--- NOTE | 2020-01-01 11:01 | P.PN ---
Progress Note - Text Progress Note Date: 01/01/20 Interval history: Patient was seen resting in bed and was directable and agreeable to speak with documentation writer. And reports that her somatic issues of nausea and diarrhea has significantly improved since reduction in Risperdal. She is currently not endorsing any significant symptoms of bipolar disorder aside from racing thoughts. At this time patient denies any suicidal or homicidal ideations intent or plan. Denies any Auditory or visual hallucinations. Patient denies any side effects from the medications and has been compliant with meds. Mental status exam: General Appearance: Patient appears to be stated age is alert, directable, and cooperative. Behavior: No agitated behavior. Patient is calm and directable Speech: Patient's speech is fluent and nonpressured. Mood/Affect: Mood is improving mildly, affect is congruent and constricted. Suicidality/Homicidality: Patient denies having any suicidal or homicidal ideation intent or plan. Perceptions: Patient denies any auditory or visual hallucinations. Though content/process: There is no evidence of any delusional thought content and thought process is linear and goal-directed. Memory and concentration: AOX3, grossly intact for the purposes of this session Judgment and insight: improving mildly Assessment/Plan: Continue with current diagnosis. Patient continues to meet criteria for inpatient psychiatric admission for symptom stabilization and safety. Patient will be maintained on current psychotropic medication regimen. Monitor for medication compliance and for any psychotropic medication side effects. Will continue to monitor ongoing response to treatment. Encouraged participation in milieu.
[2020-01-01] MEDS: FOLIC ACID 1 MG TAB PO SCH (12:48)
[2020-01-01] MEDS: MULTIVITAMINS, THERA 1 EACH TAB PO SCH (12:48)
[2020-01-01] MEDS: THIAMINE 100 MG TAB PO SCH (12:48)
[2020-01-02 06:29] VITALS: TEMP 97.9
[2020-01-02] MEDS: FLUTICASONE 50MCG/SPRAY NASAL 16GM EA NOSTRIL SCH ×2 (08:02→20:55)
[2020-01-02] MEDS: risperiDONE ODT 2 MG TAB PO SCH (08:04)
[2020-01-02] MEDS: LORATADINE 10 MG TAB PO SCH (08:05)
[2020-01-02] MEDS: VALPROIC ACID ORAL SOLN 250 MG/5 ML CUP PO SCH (08:05)
--- NOTE | 2020-01-02 10:00 | P.PN ---
Progress Note - Text Progress Note Date: 01/02/20 Interval History: Patient was seen speaking to her roommate in her room and was directable and a greeable to speak with investigative writer in the office. Patient appeared to be calmer and less paranoid with investigative writer today. She also appeared ask more appropriate questions and is more appropriate during conversation. She claims that her mood has been improving and she states that she is engaging more with others on the unit. She spoke about her family coming to visit her over the weekend and claims that she misses them. She claims that her racing thoughts have been improving on the current medications. Patient did claim that she is feeling somewhat tired during the mornings after taking her medications and states that her sleep was fair last night approximately 6-8 hours of sleep. She claims that she has been eating well on the unit. At this time patient denies any suicidal or homical ideations, intent or plan. Patient denies any auditory, visual hallucinations. Patient denies any side effects from the medications and has been compliant with meds. Mental Status Exam: General Appearance: Patient appears to be within, stated age is alert, more directable today and attempts to cooperate. Wearing hospital gown Behavior: Patient is calmly seated without any agitated behavior. More appro priate today Speech: Patient's speech is fluent and nonpressured. Mood/Affect: Mood is improving mildly, affect is congruent and constricted Suicidality/Homicidality: Patient denies having any suicidal or homicidal ideation intent or plan. Perceptions: Patient denies any visual hallucinations and denies any auditory hallucinations Though content/process: Patient is more goal oriented today and more logical. Does not endorse any delusions or paranoia. Memory and concentration: AOX3, grossly intact for the purposes of this session. Attention span improving. Judgment and insight: Improving mildly Assessment: Mood disorder likely secondary to medications i.e. steroids. Plan: -Patient continues to meet criteria for inpatient psychiatric admission for symptom stabilization and safety. Patient has signed adult voluntary form and medication consent and was placed in patient's chart. -Medications: Switched to Depakote tabs PO 1000 mg daily at bedtime +500 milligrams daily for mood stabilization. Decreased Risperdal 1 mg daily + 2mg hs for mood stabilization/psychosis. -Will check Depakote level tomorrow morning prior to discharge. -When necessary Ativan and Geodon for agitation/aggression. -NRT -not needed as patient does not smoke. -SW on board for discharge planning. Encouraged the patient to participate in milieu. If patient does well overnight and will plan for discharge tomorrow once Depakote level comes back. Patient will be discharged back home with family.
[2020-01-02] MEDS: THIAMINE 100 MG TAB PO SCH (12:39)
[2020-01-02] MEDS: FOLIC ACID 1 MG TAB PO SCH (12:39)
[2020-01-02] MEDS: MULTIVITAMINS, THERA 1 EACH TAB PO SCH (12:39)
[2020-01-02 14:33] VITALS: BMI 19.8
[2020-01-02] MEDS ORDERED: DIVALPROEX ER 500 MG TAB.ER.24H PO SCH (21:00)
[2020-01-02] MEDS ORDERED: risperiDONE ODT 2 MG TAB PO SCH (21:00)
[2020-01-03 07:58] VITALS: BP 95/56; PULSE 88; RESP 16
--- NOTE | 2020-01-03 08:15 | P.DS ---
Providers Date of admission: 12/23/19 16:00 Expected date of discharge: 01/03/20 Attending physician: Dez Franco MD Consults: 12/23/19 16:34 Consult Physician Routine Consulting Provider: Macio Vargas Consult Reason/Comments: medical management Do you want consulting provider notified?: Yes 12/24/19 11:44 Consult Physician Routine Consulting Provider: Annalisa Martin Consult Reason/Comments: Increased CRP Do you want consulting provider notified?: Yes Primary care physician: Chacha Singleton - Discharge Diagnosis(es) (1) Drug-induced mood disorder Current Visit: Yes Status: Acute Priority: High Hospital Course: Admission HPI: Admission was completed by Dr. Cruz "the patient is a 59-year-old female. She lives with her . She was admitted in transfer from medical floor. The patient was confused and disoriented. She had some episodes of agitation and strange behavior, possibly related to steroid use. Please see Dr. Franco consultation note of 12/20/2019 for details. When patient was interviewed, she was only able to provide very minimal information stating that she was too weak to stay in the interview. She also stated that she felt she was afraid she would get nauseous. In regard to the events leading up to her hospitalization and issues during her medical admission, the patient was not able to provide much details. She understood she had some kind of infection. She acknowledged that she has strange behavior. She gave some conflicting information about what she had been going through. The patient denied a past history of any mental health issues. She stated that she did not believe she had any psychotropic medications in the past. She reported no prior psychiatric hospitalizations. Current psychotropic medications include Zyprexa 2. 5 in the morning 5 mg at bedtime. She is admitted for further evaluation." Hospital course: Upon admission to the unit patient was initially bizarre, impulsive and labile. Patient was however directable and agreeable to commence treatment and take medications. Patient was fairly paranoid and isolative in the beginning of her hospitalization however with treatment she got along well with other patients on the unit and followed unit protocol. Patient was compliant with the medications throughout hospital course. Patient was started on Risperdal and titrated up to a dose of 2 mg daily at bedtime +1 mg every morning for psychosis/mood stabilization. Patient was also started on Depakote tabs by mouth 1000 mg daily at bedtime +500 mg daily for mood stabilization.. Patient spoke of her stressors and engaged in therapy both group and individual. Patient was also seen by medical team for history and physical exam. Depakote level will be checked prior to discharge today. Throughout the course of the hospitalization patient gradually improved with regards to mood lability, paranoia, impulsivity, sleep and became future oriented with improved insight and judgment. On the day of discharge patient denied any suicidal or homicidal ideations intent or plan denied any auditory or visual hallucinations. Patient endorsed wanting to live for her health and her family. Patient denied any paranoia and did not endorse any delusions. Patient does not have a significant history of substance abuse however was counseled on abstaining from all substances including alcohol and marijuana. Patient was also counseled on the medications and need for regular compliance and was encouraged to follow-up with their outpatient appointment for mental health and also for primary care. Prior to discharge a family meeting will be arranged by social studies department chair to answer any questions and ensure safety upon discharge. Mental status exam: General Appearance: Patient appears to be thin, stated age is alert, pleasant, and cooperative. Patient is in no acute distress and has improved hygiene and grooming Behavior: Patient is calmly seated without any agitated behavior. Speech: Patient's speech is fluent and nonpressured. Mood/Affect: Patient reports their mood is "good", affect is congruent and euthymic. Suicidality/Homicidality: Patient denies having any suicidal or homicidal ideation intent or plan. Perceptions: Patient denies any auditory or visual hallucinations. Though content/process: There is no evidence of any delusional thought content and thought process is linear and goal-directed. Memory and concentration: AOX3, grossly intact for the purposes of this session. Can spell "WORLD" backwards correctly. Judgment and insight: improved with guarded prognosis Impression: Mood disorder, likely secondary to medications i.e. steroids Plan: -Continue with discharge today as patient has improved and stabilized psychiatrically and is not currently an imminent threat to herself and/or others. -Continue medications: Continue the Risperdal 1 mg daily +2 mg daily at bedtime for mood stabilization/psychosis. Continue with Depakote by mouth 1000 mg daily at bedtime +500 mg daily for mood stabilization. -Patient was counseled on the need for medication compliance and appropriate follow-up at mental health and also primary care for medical issues. Patient verbalized understanding and agreed. -Social work to arrange for and conduct family meeting to ensure safety upon discharge and answer any questions/concerns. Social work also to arrange for patients follow up appointments for psychiatric care along with follow up with primary care provider. -Patient was advised to get a comprehensive panel to check liver function tests along with Depakote level in 1-2 weeks by her primary care physician. -Patient counseled on abstaining from recreational drugs and marijuana and alcohol. Was informed/educated on the adverse effects on their physical and mental health. Patient verbally agreed and understood. -Patient was instructed to return to the hospital or seek immediate medical care if their psychiatric or medical symptoms do worsen or reoccur. Allergies Allergy/AdvReac Type Severity Reaction Status Date / Time No Known Allergies Allergy Verified 12/16/19 16:36 Laboratory Results WBC 8.6 k/uL (3.8-10.6) 12/27/19 06:58 RBC 4.01 m/uL (3.80-5.40) 12/27/19 06:58 Hgb 11.9 gm/dL (11.4-16.0) 12/27/19 06:58 Hct 37.3 % (34.0-46.0) 12/27/19 06:58 MCV 92.9 fL (80.0-100.0) 12/27/19 06:58 MCH 29.7 pg (25.0-35.0) 12/27/19 06:58 MCHC 31.9 g/dL (31.0-37.0) 12/27/19 06:58 RDW 12.6 % (11.5-15.5) 12/27/19 06:58 Plt Count 426 k/uL (150-450) 12/27/19 06:58 Neutrophils % 57 % 12/27/19 06:58 Lymphocytes % 30 % 12/27/19 06:58 Monocytes % 9 % 12/27/19 06:58 Eosinophils % 1 % 12/27/19 06:58 Basophils % 1 % 12/27/19 06:58 Neutrophils # 4.9 k/uL (1.3-7.7) 12/27/19 06:58 Lymphocytes # 2.6 k/uL (1.0-4.8) 12/27/19 06:58 Monocytes # 0.8 k/uL (0-1.0) 12/27/19 06:58 Eosinophils # 0.1 k/uL (0-0.7) 12/27/19 06:58 Basophils # 0.1 k/uL (0-0.2) 12/27/19 06:58 Sodium 133 mmol/L (137-145) L 12/27/19 06:58 Potassium 4.0 mmol/L (3.5-5.1) 12/27/19 06:58 Chloride 98 mmol/L (98-107) 12/27/19 06:58 Carbon Dioxide 26 mmol/L (22-30) 12/27/19 06:58 Anion Gap 9 mmol/L 12/27/19 06:58 BUN 17 mg/dL (7-17) 12/27/19 06:58 Creatinine 0.76 mg/dL (0.52-1.04) 12/27/19 06:58 Est GFR (CKD-EPI)AfAm >90 (>60 ml/min/1.73 sqM) 12/27/19 06:58 Est GFR (CKD-EPI)NonAf 85 (>60 ml/min/1.73 sqM) 12/27/19 06:58 Glucose 93 mg/dL (74-99) 12/27/19 06:[address] Glu mg/dL 120 12/20/19 09:43 Hemoglobin A1c 5.8 % (4.0-6.0) 12/20/19 09:43 Calcium 9.0 mg/dL (8.4-10.2) 12/27/19 06:58 Total Bilirubin 0.9 mg/dL (0.2-1.3) 12/25/19 08:46 AST 57 U/L (14-36) H 12/25/19 08:46 ALT 75 U/L (4-34) H 12/25/19 08:46 Alkaline Phosphatase 77 U/L (38-126) 12/25/19 08:46 C-Reactive Protein 74.1 mg/L (<10.0) H 12/25/19 08:46 Total Protein 7.2 g/dL (6.3-8.2) 12/25/19 08:46 Albumin 4.2 g/dL (3.5-5.0) 12/25/19 08:46 Triglycerides 199 mg/dL (<150) H 12/20/19 09:43 Cholesterol 164 mg/dL (<200) 12/20/19 09:43 LDL Cholesterol, Calc 91 mg/dL (0-99) 12/20/19 09:43 HDL Cholesterol 33 mg/dL (40-60) L 12/20/19 09:43 Procalcitonin 1.06 ng/mL (0.02-0.09) H 12/25/19 08:46 Rheumatoid Factor 9 IU/mL (0-15) 12/20/19 09:43 KATIE Screen NEGATIVE (NEGATIVE) 12/20/19 09:43 c-ANCA <1:20 Titer (<1:20) 12/20/19 09:43 p-ANCA <1:20 Titer (<1:20) 12/20/19 09:43 C. difficile (EIA) Intrp Negative (Negative) 12/31/19 14:00 Vital Signs Temp 97.9 F 01/02/20 06:28 Pulse 88 01/03/20 07:55 Resp 16 01/03/20 07:55 BP 95/56 01/03/20 07:55 Pulse Ox 99 01/03/20 07:55 Intake & Output 01/02/20 01/03/20 01/03/20 18:59 06:59 18:59 Weight 50.8 kg Patient Condition at Discharge: Stable Plan - Discharge Summary New Discharge Prescriptions: New Divalproex ER [Depakote ER] 500 mg PO DAILY 30 Days tab.er.24h Divalproex ER [Depakote ER] 1,000 mg PO HS 30 Days tab.er.24h Folic Acid 1 mg PO DAILY@1200 tab risperiDONE ODT [RisperDAL M-TAB] 1 mg PO DAILY 30 Days tab risperiDONE ODT [RisperDAL M-TAB] 2 mg PO HS 30 Days tab Acetaminophen Tab [Tylenol] 650 mg PO Q4HR PRN tab PRN Reason: Pain/Discomfort Thiamine [Vitamin B-1] 100 mg PO DAILY@1200 30 Days tab Continue Loratadine [Claritin] 10 mg PO DAILY Fluticasone Propionate [Flonase Allergy Relief] 2 spray EA NOSTRIL BID Multivitamins, Thera [Multivitamin (formulary)] 1 each PO DAILY@1200 30 Days #30 tab Discontinued Omeprazole 20 mg PO DAILY Acetaminophen Tab [Tylenol] 1,000 mg PO Q4-6H PRN PRN Reason: fever Cefuroxime Axetil [Ceftin] 500 mg PO BID 3 Days #6 tab metroNIDAZOLE [Flagyl] 500 mg PO Q8HR 3 Days tab guaiFENesin-DM 100-10MG/5ML [Robitussin DM] 10 ml PO BID #100 ml Azithromycin [Zithromax] 500 mg PO DAILY 1 Days #3 tab Folic Acid 1 mg PO DAILY@1200 #30 tab Thiamine [Vitamin B-1] 100 mg PO DAILY@1200 #30 tab OLANZapine [ZyPREXA] 5 mg PO HS #30 tab OLANZapine [ZyPREXA] 2.5 mg PO DAILY #30 tab Discharge Medication List Fluticasone Propionate [Flonase Allergy Relief] 2 spray EA NOSTRIL BID 12/16/19 [History] Loratadine [Claritin] 10 mg PO DAILY 12/16/19 [History] Acetaminophen Tab [Tylenol] 650 mg PO Q4HR PRN tab 01/03/20 [Rx] Divalproex ER [Depakote ER] 1,000 mg PO HS 30 Days tab.er.24h 01/03/20 [Rx] Divalproex ER [Depakote ER] 500 mg PO DAILY 30 Days tab.er.24h 01/03/20 [Rx] Folic Acid 1 mg PO DAILY@1200 tab 01/03/20 [Rx] Multivitamins, Thera [Multivitamin (formulary)] 1 each PO DAILY@1200 30 Days #30 tab 01/03/20 [Rx] Thiamine [Vitamin B-1] 100 mg PO DAILY@1200 30 Days tab 01/03/20 [Rx] risperiDONE ODT [RisperDAL M-TAB] 1 mg PO DAILY 30 Days tab 01/03/20 [Rx] risperiDONE ODT [RisperDAL M-TAB] 2 mg PO HS 30 Days tab 01/03/20 [Rx] Discharge Disposition: HOME SELF-CARE
[2020-01-03] MEDS: FLUTICASONE 50MCG/SPRAY NASAL 16GM EA NOSTRIL SCH (08:16)
[2020-01-03] MEDS: LORATADINE 10 MG TAB PO SCH (08:17)
[2020-01-03] MEDS ORDERED: DIVALPROEX ER 500 MG TAB.ER.24H PO SCH (09:00)
[2020-01-03] MEDS ORDERED: risperiDONE ODT 1 MG TAB PO SCH (09:00)
[2020-01-03] MEDS: THIAMINE 100 MG TAB PO SCH (12:00)
[2020-01-03] MEDS: FOLIC ACID 1 MG TAB PO SCH (12:00)
[2020-01-03] MEDS: MULTIVITAMINS, THERA 1 EACH TAB PO SCH (12:00)
== END 2020-01-03 14:45 | disposition home or self-care (01) | DRG 896 ==
LOC: 3MHU 16:00
PROVIDERS: ADMIT Psychiatry & Neurology Psychiatry; ATTEND Psychiatry & Neurology Psychiatry
DX: F19.94 Other psychoactive substance use, unspecified with psychoactive substance-induced mood disorder (principal); J18.9 Pneumonia, unspecified organism; E44.1 Mild protein-calorie malnutrition; E87.1 Hypo-osmolality and hyponatremia; J90 Pleural effusion, not elsewhere classified; Z68.1 Body mass index [BMI] 19.9 or less, adult; T38.0X5A Adverse effect of glucocorticoids and synthetic analogues, initial encounter; K21.9 Gastro-esophageal reflux disease without esophagitis; N32.81 Overactive bladder; R11.0 Nausea; R19.7 Diarrhea, unspecified; R73.9 Hyperglycemia, unspecified; R53.1 Weakness; Z79.899 Other long term (current) drug therapy; Z90.49 Acquired absence of other specified parts of digestive tract; Z87.19 Personal history of other diseases of the digestive system; Z98.890 Other specified postprocedural states; Z80.0 Family history of malignant neoplasm of digestive organs
CPT/HCPCS: 80048; 80053; 80061; 80164; 80165; 83036; 84145; 85025; 86038; 86140; 86255; 86431; 87324

== ENCOUNTER → 2023-01-23 | Outpatient (CLI) | payer BC ==
[2023-01-24 00:28] LABS: Clam IgE <0.10 kU/L; Codfish IgE <0.10 kU/L; Egg White IgE <0.10 kU/L; Peanut IgE <0.10 kU/L; Scallop IgE <0.10 kU/L; Shrimp IgE <0.10 kU/L; Soybean IgE <0.10 kU/L; Walnut IgE (Food) <0.10 kU/L
== END | disposition home or self-care (01) ==
LOC: LABWHC1 11:22
PROVIDERS: ATTEND Otolaryngology
DX: J30.89 Other allergic rhinitis (principal)
CPT/HCPCS: 36415; 82785; 86003